=== PATIENT | female | born 1975 | race Hispanic/Latino ===

== ENCOUNTER → 2023-05-20 | Emergency (ER) | payer OTHER ==
[~2023-05-20] MED LIST: FAMOTIDINE 20 MG/2 ML VIAL IV ONE; HYDROCODONE/APAP 10/325 TAB ONE; MORPHINE 4 MG/ML SYR ONE; NA CHLORIDE 0.9% 1,000 ML ONE; ONDANSETRON 4 MG/2 ML VIAL ONE
--- OUTSIDE RECORDS SUMMARY | 2023-05-20 15:15 | XMS REPORT | Clinical Summary ---
Author Name Unknown Organization [facility] Address [address] [place] [address] Care Team Providers Care Chair Springer Name Role Phone Unavailable Primary Care Provider Unavailabl e Allergies No known active allergies Medications Medication Sig Dispensed Refills Start Date End Date Status amLODIPine (Norvasc) 5 mg tabletIndications:Hyp ertension Take 1 tablet (5 mg) by mouth daily. 30 tablet 0 01/23/2023 Active amoxicillin-clavulana te (Augmentin) 875 mg-125 mg per tabletIndications:Virginie lulitis and abscess of breast Take 1 tablet (875 mg) by mouth twice daily. 20 tablet 0 01/23/2023 Active Encounters Date Type Department Care Team Description 01/23/2023 1:37 PM CDT - 01/23/2023 5:22 PM CDT [facility] [address] [place] [address], 1st Floor near [place], [place] [id number] Buck Holt MD Cellulitis and abscess of breast (Primary Dx); Hypertension Discharge Disposition: Home after 05/20/2022 Surgical History Surgery Date Site/Laterality Comments SECTION, CLASSIC 05/31/1999 - 05/30/2000 x 2 LAPAROSCOPIC CHOLECYSTECOMY Medical History Medical History Date Comments Type 2 diabetes mellitus wit h diabetic retinopathy without macular edema Essential (primary) hypertension [place] palsy of left side of face COVID-19 viral pneumonia 2020 Family History Medical History Relation Name Comments Uterine cancer Maternal Aunt Relation Name Status Comments Maternal Aunt Social History Tobacco Use Types Packs/Day Years Used Date Smoking Tobacco: Never Smokeless Tobacco: Never Tobacco Cessation:Counseling Given: Not Answered Alcohol Use Standard Drinks/Week Comments Not Currently 0 (1 standard drink = 0.6 oz pur e alcohol) Sex and Gender Information Value Date Recorded Sex Assigned at Not on file Gender Identity Not on file Sexual Orientation Not on file Job Start Date Occupation Industry Not on file Not on file Not on file Obstetrics History Last Filed Vital Signs Vital Sign Reading Time Taken Comments Blood Pressure 156/85 01/23/2023 3:42 PM CDT Pulse 80 01/23/2023 3:42 PM CDT Temperature 37 C (98.6 F) 01/23/2023 3:42 PM CDT Respiratory Rate 16 01/23/2023 3:42 PM CDT Oxygen Saturation 94% 01/23/2023 3:42 PM CDT Inhaled Oxygen Concentration - - Weight 93.3 kg (205 lb 11 oz) 01/23/2023 1:32 PM CDT Height 154.9 cm (5' 1") 01/23/2023 1:32 PM CDT Body Mass Index 38.86 01/23/2023 1:32 PM CDT Plan of Treatment Not on file
[2023-05-20 16:07] LABS: Absolute Lymphocytes (CBC) 2.6 K/uL (0.7-4.9); Hematocrit 32.6 % (36.0-45.0); Lymphocytes % 35.7 % (15.3-44.8); MCV 88.8 fL (80-100); MPV 7.5 fL (7.6-11.3); Platelets 317 thou/uL (152-406); RBC Red Blood Cell Count 3.67 M/uL (3.86-4.86)
[2023-05-20 16:23] LABS: Albumin 3.3 g/dL (3.4-5.0); Bilirubin Total 0.2 mg/dL (0.2-1.0); Protein, Total 8.6 g/dL (6.4-8.2)
[2023-05-20 17:30] LABS: Specific Gravity 1.009 (1.005-1.030)
[2023-05-20 17:36] LABS: Specific Gravity 1.009 (1.005-1.030); Urine Bacteria None Seen /HPF (<20); Urine Bilirubin NEGATIVE (Negative); Urine Blood Trace (Negative); Urine Clarity Clear (Clear); Urine Color Colorless (Yellow); Urine Glucose NEGATIVE (Negative); Urine Mucus Slight /HPF (None Seen); Urine Protein NEGATIVE (Negative); Urine RBC <5 /HPF (None Seen); Urine Urobilinogen Normal (Normal)
--- NOTE | 2023-05-20 18:06 | RAD REPORT ---
EXAM DESCRIPTION: CT - Abdomen Pelvis W Contrast - 05/20/2023 5:09 pm CLINICAL HISTORY: ABD PAIN COMPARISON: No comparisons TECHNIQUE: Thin cut axial CT imaging of the abdomen and pelvis was performed following intravenous a dministration of 100 mL Isovue 300. Multiplanar reformats were generated and reviewed. All CT scans are performed using dose optimization technique as appropriate and may include automated exposure control or mA/KV adjustment according to patient size. FINDINGS: No suspicious findings in the lung bases. The liver, spleen, adrenal glands, and pancreas show no suspicious findings. Gallbladder was surgical ly removed. Symmetric renal function is seen with no hydronephrosis or suspicious renal mass. No radiopaque calcu li. Few pelvic phleboliths somewhat limit evaluation. No dilated bowel loops or bowel wall thickening. No free air, free fluid or inflammatory stranding. N o hernia, mass or bulky lymphadenopathy. The urinary bladder is without significant finding. No suspicious bony findings. IMPRESSION: No acute intra-abdominal process.
--- NOTE | 2023-05-20 18:19 | ER ---
Nurse's Notes [facility] Name: Maria Fernanda Olivares Age: 47 yrs Sex: Female : 1975 Arrival Date: 05/20/2023 Time: 15:11 Bed 7 Private MD: Laurie Mtz Diagnosis: Acute peptic ulcer, site unspecified, without hemorrhage or perforation Presentation: 05/20 15:18 Chief complaint: Patient states: she has been having upper abdominal pain for approx 2 ap3 weeks. patient states she has been dx with "bladder infection". Patient reports abdominal pain to be a 10/10 on the pain scale at this time. Coronavirus screen: At this time, the client does not indicate any symptoms associated with coronavirus-19. Ebola Screen: No symptoms or risks identified at this time. Initial Sepsis Screen: Does the patient meet any 2 criteria? No. Patient's initial sepsis screen is negative. Does the patient have a suspected source of infection? Yes: Acute abdominal pain. Risk Assessment: Do you want to hurt yourself or someone else? Patient reports no desire to harm self or others. Onset of symptoms was May 06, 2023. 15:18 Method Of Arrival: Wheelchair ap3 15:18 Acuity: ISREAL 3 ap3 Triage Assessment: 15:22 General: Appears uncomfortable, Behavior is calm, cooperative. Pain: Complains of pain ap3 in right upper quadrant Pain radiates to mid back area and right mid back Pain currently is 10 out of 10 on a pain scale. Neuro: Level of Consciousness is awake, alert, obeys commands, Oriented to person, place, time, situation, Appropriate for age. Cardiovascular: Patient's skin is warm and dry. Respiratory: Airway is patent Respiratory effort is even, unlabored, Respiratory pattern is regular, symmetrical. GI: Reports upper abdominal pain. 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 - Social history:: Smoking status: Patient denies any tobacco usage or history of. Screenin:23 Abuse screen: Denies threats or abuse. Nutritional screening: No deficits noted. ap3 Tuberculosis screening: No symptoms or risk factors identified. 16:03 [facility] ED Fall Risk Assessment (Adult) History of falling in the last 3 months, ph including since admission No falls in past 3 months (0 pts) Score/Fall Risk Level 0 - 2 = Low Risk Oriented to surroundings, Maintained a safe environment, Provided non-skid footwear, Hourly rounding (assess needs \\T\\ fall precautionary measures) done. Assessment: 16:02 General: Appears in no apparent distress. Behavior is calm, cooperative, appropriate ph for age, Reports chills for >3 days. Pain: Complains of pain in right upper quadrant Pain radiates to right mid back. Neuro: Level of Consciousness is awake, alert, obeys commands, Oriented to person, place, time, situation. Cardiovascular: Capillary refill < 3 seconds in bilateral fingers Patient's skin is warm and dry. Respiratory: Airway is patent Respiratory effort is even, unlabored, Respiratory pattern is regular, symmetrical. GI: Reports upper abdominal pain, nausea, Patient currently denies vomiting. Derm: Skin is pink, warm \\T\\ dry. Vital Signs: 15:18 BP 153 / 92; Pulse 80; Resp 18; Temp 98.1; Pulse Ox 100% ; Weight 96.16 kg; Pain 10/10; ap3 16:03 BP 143 / 76; Pulse 69; Resp 18; Pulse Ox 99% on R/A; ph 17:24 BP 159 / 75; Pulse 72; Resp 18; Pulse Ox 98% on R/A; ph 15:18 Pain Scale: Adult ap3 ED Course: 15:14 Patient arrived in ED. mr 15:14 Ernestina Franz PA-C is PHCP. sb4 15:14 Jose Luis Willis MD is Attending Physician. sb4 15:14 Laurie Mtz is Private Physician. mr 15:20 Triage completed. ap3 15:23 Arm band placed on right wrist. ap3 15:43 Tameka Nelson, MANAN is Primary Nurse. ph 16:02 CBC with Diff Sent. ph 16:02 CMP Sent. ph 16:02 Lipase Sent. ph 16:03 Patient has correct armband on for positive identification. Bed in low position. Call ph light in reach. Side rails up X 1. Pulse ox on. NIBP on. Door closed. Noise minimized. Warm blanket given. 17:11 CT Abd/Pelvis - IV Contrast Only In Process Unspecified. EDMS 18:17 Maldonado Lindo MD is Referral Physician. sb4 18:44 No provider procedures requiring assistance completed. IV discontinued, intact, ph bleeding controlled, No redness/swelling at site. Pressure dressing applied. Administered Medications: 16:01 Drug: NS 0.9% IV 1000 ml IV at 1 bolus Per protocol; 1000 mL bolus Route: IV; Rate: 1 ph bolus; Site: right antecubital; 17:25 Follow up: Response: No adverse reaction; IV Status: Completed infusion; IV Intake: ph 1000ml 16:01 Drug: Ondansetron IVP 4 mg IVP once; over 2 minutes Route: IVP; Site: right antecubital;ph 17:25 Follow up: Response: No adverse reaction ph 16:01 Drug: morphine IVP or IV 4 mg IVP once over 4 mins Route: IVP; Infused Over: 4 mins; ph Site: right antecubital; 17:25 Follow up: Response: No adverse reaction; RASS: Alert and Calm (0) ph 16:02 Drug: Famotidine IVP 20 mg IVP once; dilute with 10 mL 0.9% NaCl; give over 2 minutes ph Route: IVP; Site: right antecubital; 17:25 Follow up: Response: No adverse reaction ph 18:44 Drug: [place] PO 10 mg-325 mg 1 tabs PO once Route: PO; ph 18:44 Follow up: Response: No adverse reaction; Medication administered at discharge. ph 18:44 Not Given (Other Intervention Used): [id number] mg IVP once ph Medication: 15:23 VIS not applicable for this client. ap3 Intake: 17:25 IV: 1000ml; Total: 1000ml. ph Outcome: 18:18 Discharge ordered by . sb4 18:44 Discharged to home ambulatory, with significant other, ph 18:44 Condition: good 18:44 Discharge instructions given to patient, Instructed on discharge instructions, follow up and referral plans. medication usage, Demonstrated understanding of instructions, follow-up care, medications, Prescriptions given X 2, 18:45 Patient left the ED. ph Signatures: Dispatcher [employer] EDNM Akila Bustos, Tameka Santizo RN RN ph Sammie Sandoval RN RN ap3 Ernestina Franz, PA-C PA-C sb4
--- NOTE | 2023-05-20 18:19 | EDPHYS ---
Physician Documentation [facility] Name: Maria Fernanda Olivares Age: 47 yrs Sex: Female : 1975 Arrival Date: 05/20/2023 Time: 15:11 Bed 7 Private MD: Laurie Mtz ED Physician Jose Luis Willis HPI: 05/20 16:11 This 47 yrs old Female presents to ER via Wheelchair with complaints of sb4 Abdominal Pain. 16:11 The patient presents with abdominal pain in the epigastric area, in the right upper sb4 quadrant. Onset: The symptoms/episode began/occurred 1 week(s) ago. The symptoms radiate to right back. Associated signs and symptoms: Pertinent positives: nausea, Pertinent negatives: chest pain, constipation, diarrhea, fever. Severity of pain: in the emergency department the pain is a 10 / 10. The patient has been recently seen by a physician: in [facility] ED 5 days ago, with similar presenting complaints, and apparently given a diagnosis of constipation \T\ UTI, lab tests were done, CT scan was done, was given a prescription for antibiotics, and was referred to a specialist, but the patient's symptoms have persisted. 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 - Social history:: Smoking status: Patient denies any tobacco usage or history of. ROS: 16:27 Constitutional: Negative for fever, chills, and weight loss, sb4 16:27 Abdomen/GI: Positive for abdominal pain, 16:27 All other systems are negative, Exam: 16:28 Head/Face: Normocephalic, atraumatic. Eyes: Extra-ocular motions intact. Periorbital sb4 areas with no swelling, redness, or edema. ENT: Mucous membranes moist. Cardiovascular: Regular rate and rhythm with a normal S1 and S2. Respiratory: Lungs have equal breath sounds bilaterally, clear to auscultation and percussion. No rales, rhonchi or wheezes noted. No increased work of breathing, no retractions or nasal flaring. Abdomen/GI: Soft, non-tender, no distension. Skin: Warm, dry with normal turgor. Normal color with no rashes, no lesions, and no evidence of cellulitis. MS/ Extremity: Pulses equal, no cyanosis. Neurovascular intact. Full, normal range of motion. 16:28 Constitutional: The patient appears alert, awake, obese, in obvious pain, Vital Signs: 15:18 BP 153 / 92; Pulse 80; Resp 18; Temp 98.1; Pulse Ox 100% ; Weight 96.16 kg; Pain 10/10; ap3 16:03 BP 143 / 76; Pulse 69; Resp 18; Pulse Ox 99% on R/A; ph 17:24 BP 159 / 75; Pulse 72; Resp 18; Pulse Ox 98% on R/A; ph 15:18 Pain Scale: Adult ap3 MDM: 15:16 Patient medically screened. sb4 16:28 Differential diagnosis: bowel obstruction, gastritis, non-specific abd pain, sb4 pancreatitis, Peptic Ulcer Disease, Peritonitis, Ureterolithiasis, urinary tract infection. 18:17 Data reviewed: vital signs, nurses notes, lab test result(s), radiologic studies, and sb4 as a result, I will discharge patient. Historians other than the Patient: Spouse/Significant Other: . Care significantly affected by the following chronic conditions: Diabetes, Hypertension. 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 05/20 15:24 Order name: CBC with Diff; Complete Time: 16:10 sb4 05/20 15:24 Order name: CMP; Complete Time: 16:24 sb4 05/20 15:24 Order name: Lipase; Complete Time: 16:24 sb4 05/20 15:24 Order name: Test, Urine; Complete Time: 17:49 sb4 05/20 15:24 Order name: Urinalysis w/ reflexes; Complete Time: 17:49 sb4 05/20 15:24 Order name: CT Abd/Pelvis - IV Contrast Only; Complete Time: 18:08 sb4 05/20 15:24 Order name: IV Saline Lock; Complete Time: 16:02 sb4 05/20 15:24 Order name: Labs collected and sent; Complete Time: 16:02 sb4 Administered Medications: 16:01 Drug: NS 0.9% IV 1000 ml IV at 1 bolus Per protocol; 1000 mL bolus Route: IV; Rate: 1 ph bolus; Site: right antecubital; 17:25 Follow up: Response: No adverse reaction; IV Status: Completed infusion; IV Intake: ph 1000ml 16:01 Drug: Ondansetron IVP 4 mg IVP once; over 2 minutes Route: IVP; Site: right antecubital;ph 17:25 Follow up: Response: No adverse reaction ph 16:01 Drug: morphine IVP or IV 4 mg IVP once over 4 mins Route: IVP; Infused Over: 4 mins; ph Site: right antecubital; 17:25 Follow up: Response: No adverse reaction; RASS: Alert and Calm (0) ph 16:02 Drug: Famotidine IVP 20 mg IVP once; dilute with 10 mL 0.9% NaCl; give over 2 minutes ph Route: IVP; Site: right antecubital; 17:25 Follow up: Response: No adverse reaction ph 18:44 Drug: [place] PO 10 mg-325 mg 1 tabs PO once Route: PO; ph 18:44 Follow up: Response: No adverse reaction; Medication administered at discharge. ph 18:44 Not Given (Other Intervention Used): [id number] mg IVP once ph Disposition: 19:11 Co-signature as Attending Physician, Jose Luis Willis MD I reviewed the patient's care rt provided by the Advanced Practice Provider and agree with the diagnosis and treatment plan. Disposition Summary: 05/20/23 18:18 Discharge Ordered Notes: Location: Home sb4 Problem: an ongoing problem sb4 Symptoms: are unchanged sb4 Condition: Stable sb4 Diagnosis - Acute peptic ulcer, site unspecified, without hemorrhage or perforation sb4 Followup: sb4 - With: Maldonado Lindo MD - When: 1 week - Reason: Further diagnostic work-up, Recheck today's complaints, Re-evaluation by your physician Discharge Instructions: - Discharge Summary Sheet sb4 - Peptic Ulcer, [id number] sb4 - Peptic Ulcer Eating Plan sb4 Forms: - Medication Reconciliation Form sb4 - Thank You Letter sb4 - Antibiotic Education sb4 - Prescription Opioid Use sb4 - Patient Portal Instructions sb4 - Leadership Thank You Letter sb4 Prescriptions: - pantoprazole 40 mg Oral tablet, delayed release (enteric coated) - take 1 tablet ORAL route every day at bedtime for 4 wks; 30 tablet; Refills: 0, sb4 Product Selection Permitted - Tramadol 50 mg Oral Tablet - take 1 tablet ORAL route every 8 hours as needed; 12 tablet; Refills: 0, sb4 Product Selection Permitted Signatures: Dispatcher [employer] EDTameka Calvert RN RN ph Sammie Sandoval RN RN ap3 Ernestina Franz PA-C PA-C sb4 Jose Luis Willis MD MD rt Corrections: (The following items were deleted from the chart) 16:29 16:27 Constitutional: This is a well developed, well nourished patient who is awake, sb4 alert, and in no acute distress. Head/Face: Normocephalic, atraumatic. sb4
[2023-05-20 21:32] VITALS: TEMP 98.1
[2023-05-20 21:43] VITALS: BP 159/75; O2SAT 98
== END ==
LOC: ER 15:11
DX: K27.3 Acute peptic ulcer, site unspecified, without hemorrhage or perforation (principal); E11.9 Type 2 diabetes mellitus without complications; I10 Essential (primary) hypertension
CPT/HCPCS: 96361; 85025; 81001; 36415; 81025; 83690; 80053; 74177; 96375; 96374; 99284; Q9967; J2405; J7030

== ENCOUNTER → 2023-07-16 | Emergency (ER) | payer BC, OTHER ==
[~2023-07-16] MED LIST changes: -FAMOTIDINE 20 MG/2 ML VIAL IV ONE; -HYDROCODONE/APAP 10/325 TAB ONE; +HYDROCODONE/CHLORPHEN 5 ML/OSYR ONE; -MORPHINE 4 MG/ML SYR ONE; -NA CHLORIDE 0.9% 1,000 ML ONE; -ONDANSETRON 4 MG/2 ML VIAL ONE
--- OUTSIDE RECORDS SUMMARY | 2023-07-16 14:18 | XMS REPORT | Clinical Summary ---
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 Role Phone Unavailable Primary Care Provider [...] PM CDT [facility] [address] [place] [address], 1st Floor near [place], [place] [id number] Buck Holt MD Cellulitis and abscess of breast (Primary Dx); Hypertension Discharge Disposition: Home after 07/16/2022 Surgical History Surgery Date Site/Laterality Comments SECTION, CLASSIC 05/31/1999 - 05/30/2000 x 2 LAPAROSCOPIC CHOLECYSTECOMY Medical History Medical History Date Comments Type 2 diabetes mellitus wit h diabetic retinopathy without macular edema Essential (primary) hypertension [place] palsy of left side of face COVID-19 [...]
--- NOTE | 2023-07-16 15:10 | RAD REPORT ---
EXAM DESCRIPTION: RAD - Chest Pa And Lat (2 Views) - 07/16/2023 2:51 pm CLINICAL HISTORY: Chest pain;Cough COMPARISON: <Comparisons> TECHNIQUE: PA and lateral views of the chest were obtained. FINDINGS: The lungs are clear. Heart size is normal and central vasculature is within normal limits. No pleural effusion or pneumothorax seen. No acute bony finding noted. IMPRESSION: No acute cardiopulmonary process.
[2023-07-16 15:48] LABS: SARS-CoV-2 Antigen Rapid Res Negative (Negative)
--- NOTE | 2023-07-16 15:51 | ER ---
Nurse's Notes [facility] Name: Maria Fernanda Olivares Age: 47 yrs Sex: Female : 1975 Arrival Date: 07/16/2023 Time: 14:15 Bed IW1 Private MD: Diagnosis: Acute bronchitis, unspecified Presentation: 07/16 14:29 Chief complaint: Patient states: cough and SOB and the left side of my face was numb iw and had head pressure , has hx of bells palsy, symptoms started 3 days ago , no fever , coughing up clear phlegm. Coronavirus screen: Client presents with at least one sign or symptom that may indicate coronavirus-19. Ebola Screen: Patient negative for fever greater than or equal to 101.5 degrees Fahrenheit, and additional compatible Ebola Virus Disease symptoms Patient denies exposure to infectious person. Patient denies travel to an Ebola-affected area in the 21 days before illness onset. No symptoms or risks identified at this time. 14:29 Method Of Arrival: Ambulatory iw 14:30 Initial Sepsis Screen: Does the patient meet any 2 criteria? No. Patient's initial iw sepsis screen is negative. Does the patient have a suspected source of infection? No. Patient's initial sepsis screen is negative. Risk Assessment: Do you want to hurt yourself or someone else? Patient reports no desire to harm self or others. Onset of symptoms was July 13, 2023. 14:30 Acuity: ISREAL 3 iw Triage Assessment: 17:10 General: Appears in no apparent distress. Behavior is calm, cooperative. Respiratory: iw Reports shortness of breath cough that is. Historical: - Allergies: 14:31 No Known Allergies; iw - PMHx: 14:31 Asthma; diabetes mellitus; Gastroesophageal reflux disease; Hypercholesterolemia; iw Hypertensive disorder; - PSHx: 14:31 section; hysterectomy; iw 14:31 Cholecystectomy; iw Screenin:10 [facility] ED Fall Risk Assessment (Adult) Score/Fall Risk Level. Abuse screen: Denies iw threats or abuse. Denies injuries from another. Nutritional screening: No deficits noted. Tuberculosis screening: No symptoms or risk factors identified. Assessment: 17:10 Reassessment: Patient appears in no apparent distress at this time. Patient and/or iw family updated on plan of care and expected duration. Pain level reassessed. Patient is alert, oriented x 3, equal unlabored respirations, skin warm/dry/pink. 17:10 Pain: Complains of pain in head. Cardiovascular: Patient's skin is warm and dry. Rhythm iw is regular. Respiratory: Airway is patent Respiratory effort is even, unlabored, Breath sounds are clear bilaterally. Vital Signs: 14:29 BP 152 / 76; Pulse 90; Resp 16; Temp 98.8; Pulse Ox 97% on R/A; iw ED Course: 14:17 Patient arrived in ED. im 14:18 Ernestina Franz PA-C is PHCP. sb4 14:18 Ed Song MD is Attending Physician. sb4 14:31 Triage completed. iw 14:32 Arm band placed on. iw 14:52 Chest Pa And Lat (2 Views) XRAY In Process Unspecified. EDMS 17:10 Jovita Romano, RN is Primary Nurse. iw 17:10 Patient has correct armband on for positive identification. Provided Education on: . iw 17:10 No provider procedures requiring assistance completed. Patient did not have IV access iw during this emergency room visit. Administered Medications: 14:45 Drug: Tussionex Pennkinetic ER PO Suspension 5 ml PO once Route: PO; iw 15:00 Follow up: Response: No adverse reaction iw Medication: 17:10 VIS not applicable for this client. iw Outcome: 15:50 Discharge ordered by . sb4 17:10 Discharged to home ambulatory, iw 17:10 Condition: good 17:10 Discharge instructions given to patient, Instructed on discharge instructions, follow up and referral plans. medication usage, Demonstrated understanding of instructions, follow-up care, medications, Prescriptions given X 2, 17:10 Patient left the ED. iw Signatures: Dispatcher [employer] Jovita Holland, RN RN Ernestina Turcios PA-C PA-C sb4 Amalia Tan im
--- NOTE | 2023-07-16 15:51 | EDPHYS ---
Physician Documentation [facility] Name: Maria Fernanda Olivares Age: 47 yrs Sex: Female : 1975 Arrival Date: 07/16/2023 Time: 14:15 Bed IW1 Private MD: ED Physician Ed Song HPI: 07/16 14:38 This 47 yrs old Female presents to ER via Ambulatory with complaints of Flu sb4 Symptoms. 14:39 cough and congestion for 3 days. denies sick contacts. no fevers, no GI symptoms. has sb4 been taking cough drops and using inhaler without significant relief. Historical: - Allergies: 14:31 No Known Allergies; iw - PMHx: 14:31 Asthma; diabetes mellitus; Gastroesophageal reflux disease; Hypercholesterolemia; iw Hypertensive disorder; - PSHx: 14:31 section; hysterectomy; iw 14:31 Cholecystectomy; iw ROS: 14:39 Constitutional: Negative for fever, chills, and weight loss, sb4 14:39 ENT: Positive for sinus congestion, 14:39 Respiratory: Positive for cough, with clear sputum, 14:39 All other systems are negative, Exam: 14:39 Head/Face: Normocephalic, atraumatic. Eyes: Extra-ocular motions intact. Periorbital sb4 areas with no swelling, redness, or edema. ENT: Mucous membranes moist. Cardiovascular: Regular rate and rhythm with a normal S1 and S2. Respiratory: Lungs have equal breath sounds bilaterally, clear to auscultation and percussion. No rales, rhonchi or wheezes noted. No increased work of breathing, no retractions or nasal flaring. Abdomen/GI: Soft, non-tender, no distension. Skin: Warm, dry with normal turgor. Normal color with no rashes, no lesions, and no evidence of cellulitis. MS/ Extremity: Pulses equal, no cyanosis. Neurovascular intact. Full, normal range of motion. 14:39 Constitutional: The patient appears in no acute distress, alert, awake, obese, 14:39 Respiratory: deep breath elicits cough, Vital Signs: 14:29 BP 152 / 76; Pulse 90; Resp 16; Temp 98.8; Pulse Ox 97% on R/A; iw MDM: 14:37 Patient medically screened. sb4 14:39 Differential diagnosis: asthma, Bronchitis pneumonia, URI. sb4 15:49 Antibiotic administration: Not indicated, the patient has a suspected viral illness. sb4 Data reviewed: vital signs, nurses notes, lab test result(s), radiologic studies, and as a result, I will discharge patient. Counseling: I had a detailed discussion with the patient and/or guardian regarding the historical points, exam findings, and any diagnostic results supporting the discharge/admit diagnosis, lab results, radiology results, to return to the emergency department if symptoms worsen or persist or if there are any questions or concerns that arise at home. 07/16 14:38 Order name: SARS RAPID; Complete Time: 15:49 sb4 07/16 14:38 Order name: Flu; Complete Time: 15:23 sb4 07/16 14:38 Order name: Chest Pa And Lat (2 Views) XRAY; Complete Time: 15:12 sb4 Administered Medications: 14:45 Drug: Tussionex Pennkinetic ER PO Suspension 5 ml PO once Route: PO; iw 15:00 Follow up: Response: No adverse reaction iw Disposition: 18:54 Co-signature as Attending Physician, Ed Song MD I reviewed the patient's care rn provided by the Advanced Practice Provider and agree with the diagnosis and treatment plan. Disposition Summary: 07/16/23 15:50 Discharge Ordered Notes: Location: Home sb4 Problem: new sb4 Symptoms: have improved sb4 Condition: Stable sb4 Diagnosis - Acute bronchitis, unspecified sb4 Followup: sb4 - With: Emergency Department - When: As needed - Reason: Trouble breathing, Worsening of condition Discharge Instructions: - Discharge Summary Sheet sb4 - Acute Bronchitis, Adult sb4 Forms: - Work release form sb4 - Thank You Letter sb4 - Antibiotic Education sb4 - Patient Portal Instructions sb4 - Leadership Thank You Letter sb4 Prescriptions: - Tessalon Perles 100 mg Oral Capsule - take 1 capsule ORAL route every 8 hours As needed; 15 capsule; Refills: 0, sb4 Product Selection Permitted - Prednisone 20 mg Oral Tablet - take 1 tablet ORAL route every 12 hours for 5 days; 10 tablet; Refills: 0, sb4 Product Selection Permitted Signatures: Dispatcher [employer] Jovita Holland RN RN iw Nieto, Roman, MD MD rn Brown, Sophia, PA-C PAManjinder sb4
[2023-07-16 17:27] VITALS: BP 152/76; TEMP 98.8; O2SAT 97
== END ==
LOC: ER 14:15
DX: J20.9 Acute bronchitis, unspecified (principal); Z11.52 Encounter for screening for COVID-19
CPT/HCPCS: 36415; 71046; 87804; 87811; 99283

== ENCOUNTER 2023-09-28 16:53 | Emergency (ER) | payer BC ==
--- OUTSIDE RECORDS SUMMARY | 2023-09-28 16:55 | XMS REPORT | Clinical Summary ---
Author Name Unknown Organization [facility] Address [address] [place] [id number] Care Team Providers Care Control System Manager Name Role Phone Unavailable Primary Care Provider [...] PM CDT [facility] [address] [place] [address], 1st Floor near [facility] [place], [place] [id number] Buck Holt MD Cellulitis and abscess of breast (Primary Dx); Hypertension Discharge Disposition: Home after 09/28/2022 Surgical History Surgery Date Site/Laterality Comments SECTION, CLASSIC 05/31/1999 - 05/30/2000 x 2 LAPAROSCOPIC CHOLECYSTECOMY Medical History Medical History Date Comments Type 2 diabetes mellitus wit h diabetic retinopathy without macular edema Essential (primary) hypertension [place] palsy of left side of face COVID-19 [...]
--- NOTE | 2023-09-28 18:19 | RAD REPORT ---
EXAM DESCRIPTION: RAD - Chest Single View - 09/28/2023 6:13 pm CLINICAL HISTORY: right side lower chest pain Chest pain. COMPARISON: Chest Pa And Lat (2 Views) dated 07/16/2023 FINDINGS: Portable technique limits examination quality. Interstitial lung markings are diffusely prominent which can be seen viral infection, reactive airway disease or chronic bronchitis. The heart is upper limit normal in size. No displaced fractures.
[2023-09-28] MEDS ORDERED: KETOROLAC 30 MG/ML INJ ONE (19:06)
[2023-09-28] MEDS ORDERED: NA CHLORIDE 0.9% 1,000 ML ONE (19:06)
[2023-09-28 19:07] LABS: Sqamous Epithelial <5 /HPF (None Seen); Urine Bacteria None Seen /HPF (<20); Urine Bilirubin NEGATIVE (Negative); Urine Blood 2+ (Negative); Urine Clarity Clear (Clear); Urine Color Light-Yellow (Yellow); Urine Culture Reflex Order NOT NEEDED; Urine Glucose 4+ (Over) (Negative); Urine Ketones NEGATIVE (Negative); Urine Micro Reflex YN NO BILL MICROSCOPIC; Urine Mucus Slight /HPF (None Seen); Urine Nitrite NEGATIVE (Negative); Urine Protein 3+ (Negative); Urine Urobilinogen Normal (Normal); Urine WBC <5 /HPF (<5); Urine pH 5.5 (5.0-7.0)
[2023-09-28 19:11] LABS: Absolute Eosinophils 0.2 K/uL (0-0.5); Absolute Lymphocytes (CBC) 2.1 K/uL (0.7-4.9); Absolute Monocytes 0.5 K/uL (0.1-1.3); Absolute Neutrophil 3.4 K/uL (1.8-8.0); Basophils % 0.8 % (0-1.3); Eosinophils % 2.5 % (0-4.4); Hematocrit 34.4 % (36.0-45.0); Hemoglobin 11.7 g/dL (12.0-15.0); Lymphocytes % 34.2 % (15.3-44.8); MCH 29.3 pg (27.0-35.0); MCHC 33.9 g/dL (32.0-36.0); MCV 86.6 fL (80-100); MPV 7.7 fL (7.6-11.3); Monocytes % 8.2 % (3.3-12.3); Neutrophils % 54.3 % (41.7-73.7); Platelets 257 thou/uL (152-406); RBC Red Blood Cell Count 3.97 M/uL (3.86-4.86); Red Cell Distribution Width 14.6 % (12.1-15.2)
[2023-09-28 19:37] LABS: Albumin/Globulin Ratio 0.6 (1.1-1.8); Anion Gap 9.5 mEq/L (5.0-15.0); Bilirubin Total 0.3 mg/dL (0.2-1.0); Globulin 4.9 g/dL (2.3-3.5); Potassium 3.5 mEq/L (3.5-5.1); Protein, Total 7.9 g/dL (6.4-8.2)
--- NOTE | 2023-09-28 20:30 | RAD REPORT ---
EXAM DESCRIPTION: CT - Stone Protocol - 09/28/2023 8:14 pm CLINICAL HISTORY: Flank pain. right flank pain COMPARISON: Abdomen Pelvis W Contrast dated 05/20/2023 TECHNIQUE: Axial images were obtained without oral or IV contrast. Lack of contrast limits solid org an and vascular assessment. The [id number]-spra spans the entirety of the system partially obscuring uppermost abdomen and lung bases. Coronal reformatted images were obtained and reviewed. All CT scans are performed using dose optimization technique as appropriate and may include automated exposure control or mA/KV adjustment according to patient size. FINDINGS: The lower lung rivera are clear. Imaged portions of the liver and spleen show no suspicious findings on non-contrast imaging.Cholecyst ectomy. The pancreas and adrenal glands are normal. No pathologic lymphadenopathy in the abdomen or p elio. No urinary tract stones or obstructive uropathy. No bowel obstruction, free air, free fluid or abscess. Normal appendix noted. No significant bony abnormality. IMPRESSION: No urinary tract stones or obstructive uropathy.
[2023-09-28] MEDS ORDERED: FENTANYL CITR 100 MCG/2 ML ONE (20:42)
[2023-09-28] MEDS ORDERED: METHOCARBAMOL 1,000 MG/10 ML VIAL ONE (20:43)
[2023-09-28] MEDS ORDERED: NA CHLORIDE 0.9% 100 ML ONE (20:43)
--- NOTE | 2023-09-28 22:07 | EDPHYS ---
Physician Documentation [facility] Name: Maria Fernanda Olivares Age: 47 yrs Sex: Female : 1975 Arrival Date: 09/28/2023 Time: 16:53 Bed 12 Private MD: ED Physician Be Velásquez HPI: 09/27 18:00 This 47 yrs old Female presents to ER via Ambulatory with complaints of Back cp Pain. 18:00 The patient presents with pain that is acute, with no known mechanism of injury. The cp symptoms are located in the right mid back. 18:00 Onset: The symptoms/episode began/occurred 2 day(s) ago. cp 18:00 The pain radiates to the right flank. Associated signs and symptoms: Pertinent cp negatives: abdominal pain, constipation, dysuria, fever, hematuria, incontinence, numbness, tingling, weakness. The problem was sustained from unknown cause. Severity of symptoms: in the emergency department the symptoms are unchanged, despite home interventions. 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 - Infectious Disease History:: Denies. - Social history:: Smoking status: Patient denies any tobacco usage or history of. ROS: 18:05 Constitutional: Negative for body aches, chills, fever, poor PO intake, cp 18:05 Eyes: Negative for injury, pain, redness, and discharge, cp 18:05 ENT: Negative for drainage from ear(s), ear pain, sore throat, difficulty swallowing, difficulty handling secretions, 18:05 Cardiovascular: Negative for chest pain, edema, palpitations, 18:05 Respiratory: Negative for cough, shortness of breath, wheezing, 18:05 Abdomen/GI: Negative for abdominal pain, vomiting, diarrhea, constipation, 18:05 Back: Positive for pain at rest, pain with movement, flank pain, on the right, of the right mid back, 18:05 : Negative for urinary symptoms, hematuria, burning with urination, 18:05 Skin: Negative for cellulitis, rash, 18:05 Neuro: Negative for altered mental status, dizziness, headache, numbness, weakness, 18:05 All other systems are negative, Exam: 18:10 Constitutional: The patient appears in no acute distress, alert, awake, cp non-diaphoretic, non-toxic, well developed, well nourished, obese, uncomfortable, 18:10 Head/Face: Normocephalic, atraumatic. cp 18:10 Eyes: Periorbital structures: appear normal, Conjunctiva: normal, no exudate, no injection, Sclera: no appreciated abnormality, Lids and lashes: appear normal, bilaterally, 18:10 ENT: External ear(s): are unremarkable, Nose: is normal, Mouth: Lips: moist, Oral mucosa: pink and intact, moist, Posterior pharynx: Airway: no evidence of obstruction, patent, 18:10 Neck: ROM/movement: is normal, is supple, without pain, no range of motions limitations, no nuchal rigidity, 18:10 Chest/axilla: Inspection: normal, 18:10 Cardiovascular: Rate: normal, Rhythm: regular, Edema: is not appreciated, JVD: is not appreciated, 18:10 Respiratory: the patient does not display signs of respiratory distress, Respirations: normal, no use of accessory muscles, no retractions, labored breathing, is not present, Breath sounds: are clear throughout, no decreased breath sounds, no stridor, no wheezing, 18:10 Abdomen/GI: Inspection: obese Bowel sounds: active, all quadrants, Palpation: abdomen is soft and non-tender, in all quadrants, 18:10 Back: pain, that is moderate, of the right subscapular area and right mid back, ROM is normal, vertebral tenderness, is not appreciated, 18:10 Skin: cellulitis, is not appreciated, no rash present. 18:10 Neuro: Orientation: to person, place \T\ time. Mentation: is normal, Motor: moves all fours, strength is normal, Sensation: is normal, Gait: is steady, Vital Signs: 17:04 BP 156 / 96; Pulse 85; Resp 18 S; Temp 98.4(TE); Pulse Ox 95% on R/A; Weight 97.52 kg as6 (R); Height 5 ft. 2 in. (R); Pain 8/10; 19:30 BP 158 / 87; Pulse 81; Resp 18; Pulse Ox 95% ; cp4 20:30 BP 151 / 83; Pulse 87; Resp 18; Pulse Ox 96% ; cp4 21:30 BP 132 / 77; Pulse 84; Resp 18; Pulse Ox 96% ; cp4 22:22 BP 156 / 85; Pulse 88; Resp 18; Temp 98.1; Pulse Ox 97% ; vc1 17:04 Body Mass Index 39.32 (97.52 kg, 157.48 cm) as6 17:04 Pain Scale: Adult as6 MDM: 17:31 Patient medically screened. 18:00 Differential diagnosis: Basilar Pneumonia Hydronephrosis Pyelonephritis ruptured disc, cp sprain, Ureterolithiasis choledocholithiasis. 22:05 Data reviewed: vital signs, nurses notes, lab test result(s), radiologic studies, CT cp scan, plain films. 22:05 I considered the following discharge prescriptions or medication management in the emergency department Medications were administered in the Emergency Department. See MAR. Care significantly affected by the following chronic conditions: Diabetes, Hypertension, Obesity. Counseling: I had a detailed discussion with the patient and/or guardian regarding the historical points, exam findings, and any diagnostic results supporting the discharge/admit diagnosis, lab results, radiology results, the need for outpatient follow up, a family practitioner, to return to the emergency department if symptoms worsen or persist or if there are any questions or concerns that arise at home. Response to treatment: the patient's symptoms have mildly improved after treatment, and as a result, I will discharge patient. 09/27 17:41 Order name: Urine W/Microscopic (UAM); Complete Time: 19:53 09/27 17:41 Order name: Test, Urine; Complete Time: 19:53 cp 09/27 18:00 Order name: CBC with Diff; Complete Time: 19:53 09/27 18:00 Order name: CMP; Complete Time: 19:53 cp 09/27 18:00 Order name: Lipase; Complete Time: 19:53 cp 09/27 18:00 Order name: XRAY Chest (1 view); Complete Time: 19:53 09/27 20:35 Interpretation: Report review. 09/27 19:54 Order name: CT Stone Protocol; Complete Time: 20:35 09/27 18:00 Order name: IV Saline Lock; Complete Time: 19:03 cp 09/27 18:00 Order name: Labs collected and sent; Complete Time: 19:03 cp Administered Medications: 19:19 Drug: NS 0.9% IV 1000 ml IV at 1 bolus Per protocol; 1000 mL bolus Route: IV; Rate: 1 cp4 bolus; Site: right antecubital; 20:55 Follow up: Response: No adverse reaction cp4 22:23 Follow up: IV Status: Completed infusion; IV Intake: 1000ml vc1 19:19 Drug: TORadol - Ketorolac IVP 15 mg IVP once Route: IVP; Site: right antecubital; cp4 22:00 Follow up: Response: No adverse reaction; Marked relief of symptoms; Pain is decreased vc1 20:54 Drug: fentaNYL (PF) IVP 25 mcg IVP once Route: IVP; Site: right antecubital; cp4 22:23 Follow up: Response: No adverse reaction; Marked relief of symptoms vc1 20:55 Drug: Methocarbamol IVPB 1 grams IVPB once over 1 hrs; (mix in NS 100 mL) Route: IVPB; cp4 Infused Over: 1 hrs; Site: right antecubital; 22:00 Follow up: IV Status: Completed infusion; IV Intake: 100ml vc1 Disposition Summary: 09/28/23 22:06 Discharge Ordered Notes: Location: Home cp Problem: new cp Symptoms: have improved cp Condition: Stable cp Diagnosis - Dorsalgia, unspecified cp Followup: cp - With: Private Physician - When: 2 - 3 days - Reason: Recheck today's complaints Discharge Instructions: - Discharge Summary Sheet cp - Acute Back Pain, Adult cp - Musculoskeletal Pain cp - Back Exercises cp Forms: - Medication Reconciliation Form cp - Antibiotic Education cp - Prescription Opioid Use cp - Patient Portal Instructions cp - Leadership Thank You Letter cp Prescriptions: - Diclofenac Sodium 75 mg Oral tablet, delayed release (enteric coated) - take 1 tablet ORAL route 2 times per day; 20 tablet; Refills: 0, Product cp Selection Permitted - methocarbamol 750 mg Oral tablet - take 1 tablet ORAL route 3 times per day; 20 tablet; Refills: 0, Product cp Selection Permitted Signatures: Dispatcher [employer] EDMS Be Keith PA PA cp Slawson, Ashby, RN RN [id number] Joselin Argueta cp4 Jo Ann Briones RN vc1 Corrections: (The following items were deleted from the chart) 18:01 18:01 CBC+H.LAB.BRZ ordered. EDMS EDMS 18:01 18:01 COMPREHENSIVE METABOLIC PANEL+C.LAB.BRZ ordered. EDMS EDMS 18:01 18:01 LIPASE+C.LAB.BRZ ordered. EDMS EDMS 18:01 18:01 Chest Single View+RAD.RAD.BRZ ordered. EDMS EDMS
--- NOTE | 2023-09-28 22:07 | ER ---
Nurse's Notes [facility] Name: Maria Fernanda Olivares Age: 47 yrs Sex: Female : 1975 Arrival Date: 09/28/2023 Time: 16:53 Bed 12 Private MD: Diagnosis: Dorsalgia, unspecified Presentation: 09/27 17:04 Chief complaint: Patient states: right sided flank/mid back pain. Coronavirus screen: as6 At this time, the client does not indicate any symptoms associated with coronavirus-19. Ebola Screen: No symptoms or risks identified at this time. Initial Sepsis Screen: Does the patient meet any 2 criteria? No. Patient's initial sepsis screen is negative. Does the patient have a suspected source of infection? No. Patient's initial sepsis screen is negative. Risk Assessment: Do you want to hurt yourself or someone else? Patient reports no desire to harm self or others. Onset of symptoms was September 26, 2023. 17:04 Acuity: ISREAL 3 as6 17:04 Method Of Arrival: Ambulatory as6 Triage Assessment: 17:05 General: Appears uncomfortable, Behavior is calm, cooperative. Pain: Complains of pain as6 in back. 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 - Infectious Disease History:: Denies. - Social history:: Smoking status: Patient denies any tobacco usage or history of. Screenin:19 [facility] ED Fall Risk Assessment (Adult) History of falling in the last 3 months, cp4 including since admission No falls in past 3 months (0 pts) Confusion or Disorientation No (0 pts) Intoxicated or Sedated No (0 pts) Impaired Gait No (0 pts) Mobility Assist Device Used No (0 pt) Altered Elimination No (0 pt) Score/Fall Risk Level 0 - 2 = Low Risk Oriented to surroundings, Maintained a safe environment, Assessed \T\ reinforced patient's understanding of fall precautions, Hourly rounding (assess needs \T\ fall precautionary measures) done. Abuse screen: Denies threats or abuse. Nutritional screening: No deficits noted. Tuberculosis screening: No symptoms or risk factors identified. Assessment: 19:19 General: Appears uncomfortable, Behavior is calm, cooperative, appropriate for age. cp4 Pain:. Neuro: Level of Consciousness is awake, alert, obeys commands, Oriented to person, place, time, situation, Crew Attendant are equal bilaterally Moves all extremities. Gait is steady, Speech is normal, Facial symmetry appears normal, Pupils are PERRLA, Intact. 22:22 Reassessment: No changes from previously documented assessment. Patient and/or family vc1 updated on plan of care and expected duration. Pain level reassessed. Patient is alert, oriented x 3, equal unlabored respirations, skin warm/dry/pink. Patient states feeling better. Patient states symptoms have improved. Vital Signs: 17:04 BP 156 / 96; Pulse 85; Resp 18 S; Temp 98.4(TE); Pulse Ox 95% on R/A; Weight 97.52 kg as6 (R); Height 5 ft. 2 in. (R); Pain 8/10; 19:30 BP 158 / 87; Pulse 81; Resp 18; Pulse Ox 95% ; cp4 20:30 BP 151 / 83; Pulse 87; Resp 18; Pulse Ox 96% ; cp4 21:30 BP 132 / 77; Pulse 84; Resp 18; Pulse Ox 96% ; cp4 22:22 BP 156 / 85; Pulse 88; Resp 18; Temp 98.1; Pulse Ox 97% ; vc1 17:04 Body Mass Index 39.32 (97.52 kg, 157.48 cm) as6 17:04 Pain Scale: Adult as6 ED Course: 16:59 Patient arrived in ED. mg5 17:04 Arm band placed on right wrist. as6 17:05 Triage completed. as6 17:31 Be Keith PA is PHCP. cp 17:31 Be Velásquez MD is Attending Physician. cp 18:14 Joselin Argueta is Primary Nurse. cp4 18:15 XRAY Chest (1 view) In Process Unspecified. EDMS 18:54 Test, Urine Sent. cp4 18:54 Urine W/Microscopic (UAM) Sent. cp4 19:19 Bed in low position. Call light in reach. Side rails up X 1. cp4 19:19 No provider procedures requiring assistance completed. Initial lab(s) drawn, by me, kalen sent to lab. Urine collected: clean catch specimen, clear. Inserted saline lock: 20 gauge in right antecubital area, using aseptic technique. 20:15 CT Stone Protocol In Process Unspecified. EDMS 22:21 Provided Education on: muscle relaxer; fall safety. vc1 22:21 IV discontinued, intact, bleeding controlled, No redness/swelling at site. Pressure vc1 dressing applied. Administered Medications: 19:19 Drug: NS 0.9% IV 1000 ml IV at 1 bolus Per protocol; 1000 mL bolus Route: IV; Rate: 1 cp4 bolus; Site: right antecubital; 20:55 Follow up: Response: No adverse reaction cp4 22:23 Follow up: IV Status: Completed infusion; IV Intake: 1000ml vc1 19:19 Drug: TORadol - Ketorolac IVP 15 mg IVP once Route: IVP; Site: right antecubital; cp4 22:00 Follow up: Response: No adverse reaction; Marked relief of symptoms; Pain is decreased vc1 20:54 Drug: fentaNYL (PF) IVP 25 mcg IVP once Route: IVP; Site: right antecubital; cp4 22:23 Follow up: Response: No adverse reaction; Marked relief of symptoms vc1 20:55 Drug: Methocarbamol IVPB 1 grams IVPB once over 1 hrs; (mix in NS 100 mL) Route: IVPB; cp4 Infused Over: 1 hrs; Site: right antecubital; 22:00 Follow up: IV Status: Completed infusion; IV Intake: 100ml vc1 Medication: 19:19 VIS not applicable for this client. cp4 Intake: 22:00 IV: 100ml; Total: 100ml. vc1 22:23 IV: 1000ml; Total: 1100ml. vc1 Outcome: 22:06 Discharge ordered by MD. cp 22:21 Discharged to home ambulatory, with significant other, vc1 22:21 Condition: improved 22:21 Discharge instructions given to patient, significant other, Instructed on discharge instructions, follow up and referral plans. no driving heavy equipment, medication usage, Demonstrated understanding of instructions, follow-up care, medications, Prescriptions given X 2, 22:23 Patient left the ED. vc1 Signatures: [facility]patcher [facility] Be Keith PA PA cp Slawson, Ashby, RN RN as6 Jo Ann Briones RN RN vc1 Staci Webb mg5 Joselin Argueta cp4
[2023-09-28 22:48] VITALS: BP 156/85; TEMP 98.1; O2SAT 97
== END 2023-09-28 22:23 | disposition home or self-care (01) ==
LOC: ER 16:53
DX: M54.9 Dorsalgia, unspecified (principal)
CPT/HCPCS: 85025; 81001; 36415; 81025; 83690; 80053; 76377; 74176; 71045; J3010; J2800; J7030; 96361; 96365; 96375; 99284

== ENCOUNTER 2023-10-28 20:17 | Emergency (ER) | payer BC ==
--- OUTSIDE RECORDS SUMMARY | 2023-10-28 20:20 | XMS REPORT | Clinical Summary ---
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 30 tablet 01/23/2023 Active amoxicillin-clavulana te (Augmentin) 875 mg-125 mg per tabletIndications:Virginie lulitis and abscess of breast Take 1 tablet (875 mg) by mouth twice daily. 20 tablet 01/23/2023 Active Encounters Date Type Department Care Team Description 01/23/2023 1:37 PM CDT - 01/23/2023 5:22 PM CDT [facility] [address] [place] [address], 1st [place] [address] Buck Holt MD Cellulitis and abscess of breast (Primary Dx); Hypertension Discharge Disposition: Home after 10/28/2022 Surgical History Surgery Date Site/Laterality Comments SECTION, CLASSIC 05/31/1999 - 05/30/2000 x 2 LAPAROSCOPIC CHOLECYSTECOMY Medical History Medical History Date Comments Type 2 diabetes mellitus wit h diabetic retinopathy without macular edema Essential (primary) hypertension [place] palsy of left side of face COVID-19 [...]
[2023-10-28 21:58] LABS: SARS-CoV-2 Antigen CONTROL BLUE LINE VIS/BG OK; SARS-CoV-2 Antigen Rapid Res Negative (Negative)
[2023-10-28] MEDS ORDERED: HYDROCODONE/CHLORPHEN 5 ML/OSYR ONE (22:36)
[2023-10-28] MEDS ORDERED: dexAMETHasone 10 MG/ML VIAL ONE (22:37)
[2023-10-28] MEDS ORDERED: KETOROLAC 30 MG/ML INJ ONE (22:37)
[2023-10-28] MEDS ORDERED: AMOX/K CLAV 875 MG TAB ONE (22:37)
--- NOTE | 2023-10-28 22:40 | RAD REPORT ---
EXAM DESCRIPTION: RAD - Chest Pa And Lat (2 Views) - 10/28/2023 10:32 pm CLINICAL HISTORY: Congestion;Cough Chest pain. COMPARISON: Chest Single View dated 09/28/2023; Chest Pa And Lat (2 Views) dated 07/16/2023 FINDINGS: Moderate areas of airspace opacity are seen in the right lower lobe, left lower lobe media l left upper lobe likely representing multifocal pneumonia. The heart is normal in size. No displaced fractures. IMPRESSION: A multifocal moderate pneumonia pattern is suspected.
[2023-10-28] MEDS ORDERED: AZITHROMYCIN 250 MG TAB ONE (22:50)
--- NOTE | 2023-10-28 23:07 | ER ---
Nurse's Notes [facility] Name: Maria Fernanda Olivares Age: 47 yrs Sex: Female : 1975 Arrival Date: 10/28/2023 Time: 20:17 Bed DX5 Private MD: Diagnosis: Pneumonia, unspecified organism;Acute sinusitis, unspecified Presentation: 10/27 21:13 Chief complaint: Patient states: Fever, cough, congestion, headache onset 1 week ago. cm10 Pt states that she is coughing up clear phlegm. Pt also reports right sided throat pain. Coronavirus screen: Client denies travel out of the [place] in the last 14 days. At this time, the client does not indicate any symptoms associated with coronavirus-19. Ebola Screen: Patient denies travel to an Ebola-affected area in the 21 days before illness onset. No symptoms or risks identified at this time. Initial Sepsis Screen: Does the patient meet any 2 criteria? HR > 90 bpm. Does the patient have a suspected source of infection? No. Patient's initial sepsis screen is negative. Risk Assessment: Do you want to hurt yourself or someone else? Patient reports no desire to harm self or others. Onset of symptoms was October 28, 2023. 21:13 Method Of Arrival: Ambulatory 10 21:13 Acuity: ISREAL 3 cm10 Triage Assessment: 21:16 General: Appears in no apparent distress. uncomfortable, Behavior is calm, cooperative. cm10 Neuro: No deficits noted. Level of Consciousness is awake, alert, obeys commands, Oriented to person, place, time, situation, Appropriate for age. Respiratory: No deficits noted. Airway is patent Respiratory effort is even, unlabored, Respiratory pattern is regular, symmetrical. Historical: - Allergies: 21:16 No Known Allergies; cm10 - PMHx: 21:16 Asthma; diabetes mellitus; Gastroesophageal reflux disease; Hypercholesterolemia; cm10 Hypertensive disorder; - PSHx: 21:16 section; Cholecystectomy; hysterectomy; cm10 - Immunization history:: Adult Immunizations up to date. - Infectious Disease History:: Denies. - Social history:: Smoking status: Patient denies any tobacco usage or history of. Screenin:19 [facility] ED Fall Risk Assessment (Adult) History of falling in the last 3 months, vc1 including since admission No falls in past 3 months (0 pts) Confusion or Disorientation No (0 pts) Intoxicated or Sedated No (0 pts) Impaired Gait No (0 pts) Mobility Assist Device Used No (0 pt) Altered Elimination No (0 pt) Score/Fall Risk Level 0 - 2 = Low Risk Oriented to surroundings, Maintained a safe environment, Educated pt \T\ family on fall prevention, incl call for assistance when getting out of bed. Abuse screen: Denies threats or abuse. Nutritional screening: No deficits noted. Tuberculosis screening: No symptoms or risk factors identified. Vital Signs: 21:13 BP 166 / 76; Pulse 95; Resp 18; Temp 99.4; Pulse Ox 94% on R/A; Weight 97.52 kg; Height cm10 5 ft. 2 in. ; Pain 9/10; 21:13 Body Mass Index 39.32 (97.52 kg, 157.48 cm) cm10 21:13 Pain Scale: Adult cm10 ED Course: 20:21 Patient arrived in ED. gm2 21:16 Triage completed. cm10 21:16 Arm band placed on Patient placed in waiting room. cm10 21:19 Ernestina Franz PA-C is PHCP. sb4 21:19 Biju Laws MD is Attending Physician. sb4 21:21 Strep Sent. cm10 21:21 Flu Sent. cm10 21:21 SARS RAPID Sent. cm10 22:33 Chest Pa And Lat (2 Views) XRAY In Process Unspecified. EDMS 23:19 No provider procedures requiring assistance completed. IV discontinued, intact, vc1 bleeding controlled, No redness/swelling at site. Pressure dressing applied. Administered Medications: 22:42 CANCELLED (Physician Discretion): amoxicillin-frrixmrufqg202 mg PO once sb4 22:48 Drug: Tussionex Pennkinetic ER PO Suspension 5 ml PO once Route: PO; kb3 22:48 Drug: Ketorolac IM 30 mg IM once Route: IM; Site: right ventrogluteal; kb3 22:48 Drug: Dexamethasone IM 10 mg IM once Route: IM; Site: left ventrogluteal; kb3 22:48 Drug: Amoxicillin-Clavulanate PO 875 mg PO once Route: PO; kb3 22:55 Drug: AZITHromycin PO 500 mg PO once Route: PO; kb3 Medication: 23:19 VIS not applicable for this client. vc1 Outcome: 23:07 Discharge ordered by . corey 23:20 Discharged to home ambulatory, vc1 23:20 Condition: good 23:20 Condition: good 23:20 Discharge instructions given to patient, Instructed on discharge instructions, follow up and referral plans. the need for admit, medication usage, Demonstrated understanding of medications, Prescriptions given X 4, 23:42 Patient left the ED. vc1 Signatures: Dispatcher [employer] EDMS Jo Ann Briones RN RN vc1 Ayah Fink RN RN haroon3 Ernestina Franz, PA-C PA-C sb4 Kait Carl RN RN cm10 Amanda Quintanilla 2
--- NOTE | 2023-10-28 23:07 | EDPHYS ---
Physician Documentation [facility] Name: Maria Fernanda Olivares Age: 47 yrs Sex: Female : 1975 Arrival Date: 10/28/2023 Time: 20:17 Bed DX5 Private MD: ED Physician Biju Laws HPI: 10/27 21:45 This 47 yrs old Female presents to ER via Ambulatory with complaints of Fever, sb4 Cough, Nasal Congestion, Ear Pain, Weakness. 21:45 fever, cough, ear pain, sinus congestion, fatigue x 1 week. been taking OTC medications sb4 without significant relief in symptoms. with similar symptoms, less severe. Historical: - Allergies: 21:16 No Known Allergies; cm10 - PMHx: 21:16 Asthma; diabetes mellitus; Gastroesophageal reflux disease; Hypercholesterolemia; cm10 Hypertensive disorder; - PSHx: 21:16 section; Cholecystectomy; hysterectomy; cm10 - Immunization history:: Adult Immunizations up to date. - Infectious Disease History:: Denies. - Social history:: Smoking status: Patient denies any tobacco usage or history of. ROS: 21:45 Cardiovascular: Negative for chest pain, palpitations, and edema, sb4 21:45 Constitutional: Positive for fatigue, fever, 21:45 ENT: Positive for ear pain, sinus congestion, sinus pain, sore throat, 21:45 Respiratory: Positive for cough, with clear sputum, 21:45 Neuro: Positive for dizziness, headache, 21:45 All other systems are negative, Exam: 21:45 Eyes: Extra-ocular motions intact. Periorbital areas with no swelling, redness, or sb4 edema. Cardiovascular: Regular rate and rhythm with a normal S1 and S2. Respiratory: Lungs have equal breath sounds bilaterally, clear to auscultation and percussion. No rales, rhonchi or wheezes noted. No increased work of breathing, no retractions or nasal flaring. Abdomen/GI: Soft, non-tender, no distension. 21:45 Constitutional: The patient appears alert, awake, obviously ill, uncomfortable, 21:45 Eyes: Extraocular movements: intact throughout, 21:45 ENT: Ear canal(s): swelling, bilaterally, Nose: Turbinates: are swollen bilaterally, Posterior pharynx: Tonsils: bilaterally enlarged, with erythema, Vital Signs: 21:13 BP 166 / 76; Pulse 95; Resp 18; Temp 99.4; Pulse Ox 94% on R/A; Weight 97.52 kg; Height cm10 5 ft. 2 in. ; Pain 9/10; 21:13 Body Mass Index 39.32 (97.52 kg, 157.48 cm) cm10 21:13 Pain Scale: Adult cm10 MDM: 21:19 Patient medically screened. sb4 23:35 Data reviewed: vital signs, nurses notes, lab test result(s), radiologic studies, and sb4 as a result, I will discharge patient. Counseling: I had a detailed discussion with the patient and/or guardian regarding the historical points, exam findings, and any diagnostic results supporting the discharge/admit diagnosis, lab results, radiology results, to return to the emergency department if symptoms worsen or persist or if there are any questions or concerns that arise at home. 10/27 21:17 Order name: SARS RAPID; Complete Time: 22:02 cm10 10/27 21:17 Order name: Flu; Complete Time: 21:58 cm10 10/27 21:17 Order name: Strep; Complete Time: 22:02 cm10 10/27 22:00 Order name: Throat Culture EDMS 10/27 21:40 Order name: Chest Pa And Lat (2 Views) XRAY; Complete Time: 22:42 sb4 Administered Medications: 22:42 CANCELLED (Physician Discretion): amoxicillin-eysrwmcrbdi622 mg PO once sb4 22:48 Drug: Tussionex Pennkinetic ER PO Suspension 5 ml PO once Route: PO; kb3 22:48 Drug: Ketorolac IM 30 mg IM once Route: IM; Site: right ventrogluteal; kb3 22:48 Drug: Dexamethasone IM 10 mg IM once Route: IM; Site: left ventrogluteal; kb3 22:48 Drug: Amoxicillin-Clavulanate PO 875 mg PO once Route: PO; kb3 22:55 Drug: AZITHromycin PO 500 mg PO once Route: PO; kb3 Disposition: 10/28 03:04 Co-signature as Attending Physician, Biju Laws MD I agree with the assessment sp4 and plan of care. I reviewed the patient's care provided by the Advanced Practice Provider and agree with the diagnosis and treatment plan. Disposition Summary: 10/28/23 23:07 Discharge Ordered Notes: Location: Home sb4 Problem: new sb4 Symptoms: have improved sb4 Condition: Stable sb4 Diagnosis - Pneumonia, unspecified organism sb4 - Acute sinusitis, unspecified sb4 Followup: sb4 - With: Emergency Department - When: As needed - Reason: Trouble breathing, Worsening of condition Discharge Instructions: - Discharge Summary Sheet sb4 - Community-Acquired Pneumonia, Adult sb4 - Sinusitis, Adult, [id number] sb4 Forms: - Antibiotic Education sb4 - Patient Portal Instructions sb4 - Leadership Thank You Letter sb4 Prescriptions: - azithromycin 250 mg Oral tablet - take 1 tablet ORAL route daily for 4 days; 4 tablet; Refills: 0, Product sb4 Selection Permitted - Augmentin 875-125 mg Oral Tablet - take 1 tablet ORAL route every 12 hours for 10 days; 20 tablet; Refills: 0, sb4 Product Selection Permitted - Medrol (Kyler) 4 mg Oral Tablets, Dose Pack - take 1 tablet ORAL route as directed - follow package instructions; 1 packet; sb4 Refills: 0, Product Selection Permitted - Guaifenesin AC 10-100 mg/5 mL Oral Liquid - take 10 milliliters ORAL route every 4 hours As needed; 240 milliliter; sb4 Refills: 0, Product Selection Permitted Signatures: Dispatcher [employer] EDMS Ayah Fink, RN RN kb3 Ernestina Franz PARuthC PA-C sb4 Biju Laws MD MD sp4 Kait Carl, RN RN cm10 Corrections: (The following items were deleted from the chart) 10/27 21:41 21:41 Chest Pa And Lat (2 Views)+RAD.RAD.BRZ ordered. EDMS EDMS 22:42 21:41 Amoxicillin-Clavulanate PO 875 mg PO once ordered. sb4 sb4
[2023-10-29 00:36] VITALS: BP 166/76; TEMP 99.4; O2SAT 94
== END 2023-10-28 23:42 | disposition home or self-care (01) ==
LOC: ER 20:17
DX: J18.9 Pneumonia, unspecified organism (principal); J01.90 Acute sinusitis, unspecified; Z11.52 Encounter for screening for COVID-19
CPT/HCPCS: 87070; 36415; 87081; 87804 ×2; 71046; 96372; 99284; 87811; J1100

== ENCOUNTER 2023-12-29 13:23 | Emergency (ER) | payer BC, MEDICARE ==
--- OUTSIDE RECORDS SUMMARY | 2023-12-29 13:26 | XMS REPORT | Clinical Summary ---
Author Name Unknown Organization [facility] Address [address] [place] [id number] Care Team Providers Care Furniture Packer Name Role Phone Unavailable Primary Care Provider [...] PM CDT [facility] [address] [place] [address], [address] [place] [address] Buck Holt MD Cellulitis and abscess of breast (Primary Dx); Hypertension Discharge Disposition: Home after 12/29/2022 Surgical History Surgery Date Site/Laterality Comments SECTION, CLASSIC 05/31/1999 - 05/30/2000 x 2 LAPAROSCOPIC CHOLECYSTECOMY Medical History Medical History Date Comments Type 2 diabetes mellitus wit h diabetic retinopathy without macular edema Essential (primary) hypertension [place] palsy of left side of face COVID-19 [...]
[2023-12-29 14:23] LABS: Absolute Basophils 0.1 K/uL (0-0.5); Absolute Eosinophils 0.1 K/uL (0-0.5); Absolute Monocytes 0.4 K/uL (0.1-1.3); Absolute Neutrophil 3.5 K/uL (1.8-8.0); Basophils % 0.8 % (0-1.3); Eosinophils % 1.9 % (0-4.4); Hematocrit 35.9 % (36.0-45.0); Hemoglobin 11.7 g/dL (12.0-15.0); Lymphocytes % 32.7 % (15.3-44.8); MCH 28.8 pg (27.0-35.0); MCHC 32.6 g/dL (32.0-36.0); MCV 88.3 fL (80-100); MPV 8.3 fL (7.6-11.3); Monocytes % 6.9 % (3.3-12.3); Neutrophils % 57.7 % (41.7-73.7); Platelets 256 thou/uL (152-406); RBC Red Blood Cell Count 4.06 M/uL (3.86-4.86); Red Cell Distribution Width 14.3 % (12.1-15.2)
[2023-12-29 14:36] LABS: ALT/SGPT 17 U/L (13-56); Albumin 3.1 g/dL (3.4-5.0); Albumin/Globulin Ratio 0.7 (1.1-1.8); Alkaline Phosphatase 131 U/L (45-117); Anion Gap 6.8 mEq/L (5.0-15.0); BUN Blood Urea Nitrogen 30 mg/dL (7-18); Bicarbonate 30 mEq/L (21-32); Bilirubin Total 0.3 mg/dL (0.2-1.0); Globulin 4.7 g/dL (2.3-3.5); Glomerular Filtration Rate 52 ml/min (=/>90); Glucose Level 259 mg/dL (74-106); Lipase 35 U/L (13-75); Potassium 3.8 mEq/L (3.5-5.1); Protein, Total 7.8 g/dL (6.4-8.2); Sodium Level 136 mEq/L (136-145)
[2023-12-29 14:41] LABS: AST/SGOT < 10 U/L (15-37)
[2023-12-29 14:46] LABS: Specific Gravity < 1.005 (1.005-1.030); Sqamous Epithelial <5 /HPF (None Seen); Urine Bacteria <20 /HPF (<20); Urine Bilirubin NEGATIVE (Negative); Urine Blood 1+ (Negative); Urine Clarity Clear (Clear); Urine Color Colorless (Yellow); Urine Crystals Unidentified Few /HPF (None Seen); Urine Culture Reflex Order NOT NEEDED; Urine Glucose 2+ (Negative); Urine Ketones NEGATIVE (Negative); Urine Microscopic Reflex YN ORDER UMIC; Urine Mucus Slight /HPF (None Seen); Urine Nitrite NEGATIVE (Negative); Urine Protein 1+ (Negative); Urine RBC <5 /HPF (None Seen); Urine Urobilinogen Normal (Normal); Urine WBC <5 /HPF (<5)
--- NOTE | 2023-12-29 15:25 | RAD REPORT ---
EXAM DESCRIPTION: CT - CTFBWCON CLINICAL HISTORY: FACIAL PAIN Left-sided facial pain and swelling COMPARISON: <Comparisons> TECHNIQUE: Axial 2 mm thick images of the face were obtained with sagittal and coronal reconstructio n images. All CT scans are performed using dose optimization technique as appropriate and may include automated exposure control or mA/KV adjustment according to patient size. FINDINGS: No acute facial bone fracture is seen.The mandible is intact. The globes and orbital contents are grossly unremarkable.The paranasal sinuses and mastoids are clear . The left parotid gland appears enlarged and demonstrates internal areas of increased density. Normal thyroid gland. IMPRESSION: Enlarged and heterogenous left parotid gland suggests parotitis. Salivary glands are oth erwise unremarkable. .
[2023-12-29] MEDS ORDERED: AMOX/K CLAV 875 MG TAB ONE (16:11)
[2023-12-29] MEDS ORDERED: ONDANSETRON 4 MG/2 ML VIAL ONE (16:11)
[2023-12-29] MEDS ORDERED: NA CHLORIDE 0.9% 1,000 ML ONE (16:11)
[2023-12-29] MEDS ORDERED: KETOROLAC 30 MG/ML INJ ONE (16:11)
--- NOTE | 2023-12-29 16:33 | EDPHYS ---
Physician Documentation [facility] Name: Maria Fernanda Olivares Age: 48 yrs Sex: Female : 1975 Arrival Date: 12/29/2023 Time: 13:23 Bed 6 Private MD: ED Physician Be Velásquez HPI: 12/28 13:48 This 48 yrs old Female presents to ER via Ambulatory with complaints of Facial kb Swelling, Flank Pain. 13:48 Patient is a 48-year-old female who presents for swelling and pain to left cheek, just kb in front of ear that started 3 weeks ago and is gotten worse. Also reports right upper quadrant pain that started 7 months ago. Denies fever, nausea, vomiting, diarrhea. States she has not had the symptoms evaluated since onset. The pain to her cheek got worse today which is prompted her visit to the emergency department. Historical: - Allergies: 13:42 No Known Allergies; ko1 - Home Meds: 13:42 Unable to obtain [Active]; ko1 - PMHx: 13:42 Asthma; diabetes mellitus; Gastroesophageal reflux disease; Hypercholesterolemia; ko1 Hypertensive disorder; bells palsy (hysterectomy); - PSHx: 13:42 section; Cholecystectomy; hysterectomy; ko1 - Immunization history:: Adult Immunizations up to date. - Infectious Disease History:: Denies. - Social history:: Smoking status: Patient denies any tobacco usage or history of. ROS: 13:47 Constitutional: As per HPI kb Exam: 13:47 Constitutional: This is a well developed, well nourished patient who is awake, alert, kb and in no acute distress. Head/Face: Moderate swelling, tenderness to preauricular area on left side of face. ENT: Moist Mucous membranes Cardiovascular: Regular rate Respiratory: Respirations even and unlabored. No increased work of breathing. Talking in full sentences Skin: Warm, dry with normal turgor. Normal color. MS/ Extremity: Pulses equal, no cyanosis. Neurovascular intact. Full, normal range of motion. Neuro: Awake and alert, GCS 15, oriented to person, place, time, and situation. Moves all extremities. Normal gait. 13:47 ENT: Ear canal(s): cerumen impaction, that is mild, occluding the left ear canal, 13:47 Abdomen/GI: Inspection: abdomen appears normal, Bowel sounds: normal, Palpation: soft, in all quadrants, moderate abdominal tenderness, in the right upper quadrant, Vital Signs: 13:39 BP 188 / 96; Pulse 74; Resp 16; Temp 97; Pulse Ox 97% ; ko1 16:30 BP 157 / 83; Pulse 76; Resp 16; Temp 97.5; Pulse Ox 99% on R/A; ph 18:04 BP 149 / 76; Pulse 81; Resp 18; Pulse Ox 99% on R/A; ld1 MDM: 13:33 Patient medically screened. kb 13:48 Data reviewed: vital signs, nurses notes. kb 15:34 Differential diagnosis: parotitis, salivary stone, abscess, abnormal lfts. kb 15:35 Counseling: I had a detailed discussion with the patient and/or guardian regarding the kb historical points, exam findings, and any diagnostic results supporting the discharge/admit diagnosis, lab results, radiology results, the need for outpatient follow up, a family practitioner, to return to the emergency department if symptoms worsen or persist or if there are any questions or concerns that arise at home. 15:36 Test considered but Not performed: Ultrasound us abd considered but pt has history of kb cholecystectomy. CT: ct abd considered for RUQ pain but labs reassuring, pain has been ongoing for 7-8 months, pt afebrile, no n/v/d. 12/28 13:46 Order name: CBC with Diff; Complete Time: 14:39 kb 12/28 13:46 Order name: CMP; Complete Time: 14:56 kb 12/28 13:46 Order name: Lipase; Complete Time: 14:56 kb 12/28 13:46 Order name: Urinalysis w/ reflexes; Complete Time: 14:56 kb 12/28 13:53 Order name: CT Facial Bones W/ Con \T\ Mpr; Complete Time: 15:27 kb 12/28 13:46 Order name: IV Saline Lock; Complete Time: 14:12 kb 12/28 13:46 Order name: Labs collected and sent; Complete Time: 14:12 kb Administered Medications: 16:30 Drug: NS 0.9% IV 1000 ml IV at 1 bolus Per protocol; 1000 mL bolus Route: IV; Rate: 1 ph bolus; Site: left antecubital; 18:00 Follow up: Response: No adverse reaction; IV Status: Completed infusion; IV Intake: ph 1000ml 16:30 Drug: TORadol - Ketorolac IVP 15 mg IVP once Route: IVP; Site: left antecubital; ph 18:42 Follow up: Response: No adverse reaction ph 16:30 Drug: Ondansetron IVP 4 mg IVP once; over 2 minutes Route: IVP; Site: left antecubital; ph 17:00 Follow up: Response: No adverse reaction ph 16:30 Drug: Amoxicillin-Clavulanate PO 875 mg PO once Route: PO; ph 17:00 Follow up: Response: No adverse reaction ph Disposition: 21:27 Co-signature as Attending Physician, Be Velsáquez MD I agree with the assessment and ruddy plan of care. Disposition Summary: 12/29/23 16:32 Discharge Ordered Notes: Location: Home kb Condition: Stable kb Diagnosis - Left Parotitis kb Followup: kb - With: Emergency Department - When: As needed - Reason: Worsening of condition Followup: kb - With: Private Physician - When: 2 - 3 days - Reason: Recheck today's complaints, Continuance of care, Re-evaluation by your physician Discharge Instructions: - Discharge Summary Sheet kb - Parotitis, [id number] kb Forms: - Medication Reconciliation Form kb - Antibiotic Education kb - Prescription Opioid Use kb - Patient Portal Instructions kb - Leadership Thank You Letter kb Prescriptions: - Augmentin 875-125 mg Oral Tablet - take 1 tablet ORAL route every 12 hours for 10 days; 20 tablet; Refills: 0, kb Product Selection Permitted Signatures: Dispatcher [employer] EDMS Reena Lopez, IGNACIO-Anabell PIERRE-Be Whitfield MD MD cha Hall, Patricia, RN RN Medina Cisneros RN RN ko1 Corrections: (The following items were deleted from the chart) 13:47 13:47 CBC+H.LAB.BRZ ordered. EDMS EDMS 13:47 13:47 COMPREHENSIVE METABOLIC PANEL+C.LAB.BRZ ordered. EDMS EDMS 13:47 13:47 LIPASE+C.LAB.BRZ ordered. EDMS EDMS 13:47 13:47 Urinalysis+U.LAB.BRZ ordered. EDMS EDMS 13:54 13:54 Facial Bones W/ Con \T\ MPR+CT.RAD.BRZ ordered. EDMS EDMS
--- NOTE | 2023-12-29 16:33 | ER ---
Nurse's Notes [facility] Name: Maria Fernanda Olivares Age: 48 yrs Sex: Female : 1975 Arrival Date: 12/29/2023 Time: 13:23 Bed 6 Private MD: Diagnosis: Left Parotitis Presentation: 12/28 13:39 Chief complaint: Patient states: left facial pain and swelling for 3 weeks and right ko1 upper quadrant of abdomen. Coronavirus screen: At this time, the client does not indicate any symptoms associated with coronavirus-19. Ebola Screen: No symptoms or risks identified at this time. Initial Sepsis Screen: Does the patient meet any 2 criteria? No. Patient's initial sepsis screen is negative. Does the patient have a suspected source of infection? No. Patient's initial sepsis screen is negative. Risk Assessment: Do you want to hurt yourself or someone else? Patient reports no desire to harm self or others. Onset of symptoms is unknown. 13:39 Method Of Arrival: Ambulatory ko1 13:39 Acuity: ISREAL 3 ko1 Triage Assessment: 13:42 General: Appears in no apparent distress. Behavior is cooperative, anxious. Pain: ko1 Complains of pain in left side of face and right upper abdomen. Historical: - Allergies: 13:42 No Known Allergies; ko1 - Home Meds: 13:42 Unable to obtain [Active]; ko1 - PMHx: 13:42 Asthma; diabetes mellitus; Gastroesophageal reflux disease; Hypercholesterolemia; ko1 Hypertensive disorder; bells palsy (hysterectomy); - PSHx: 13:42 section; Cholecystectomy; hysterectomy; ko1 - Immunization history:: Adult Immunizations up to date. - Infectious Disease History:: Denies. - Social history:: Smoking status: Patient denies any tobacco usage or history of. Screenin:31 [facility] ED Fall Risk Assessment (Adult) History of falling in the last 3 months, ph including since admission No falls in past 3 months (0 pts) Confusion or Disorientation No (0 pts) Intoxicated or Sedated No (0 pts) Impaired Gait No (0 pts) Mobility Assist Device Used No (0 pt) Altered Elimination No (0 pt) Score/Fall Risk Level 0 - 2 = Low Risk Oriented to surroundings, Maintained a safe environment, Hourly rounding (assess needs \T\ fall precautionary measures) done. Abuse screen: Denies threats or abuse. Denies injuries from another. Nutritional screening: No deficits noted. Tuberculosis screening: No symptoms or risk factors identified. Assessment: 16:31 General: Appears in no apparent distress. Behavior is calm, cooperative. Pain: ph Complains of pain in left jaw. Neuro: Level of Consciousness is awake, alert, obeys commands, Oriented to person, place, time, situation. Cardiovascular: Capillary refill < 3 seconds in bilateral fingers Patient's skin is warm and dry. Respiratory: Airway is patent Respiratory effort is even, unlabored, Respiratory pattern is regular, symmetrical. Derm: Skin is pink, warm \T\ dry. 18:04 Reassessment: Patient appears in no apparent distress at this time. No changes from ld1 previously documented assessment. Patient and/or family updated on plan of care and expected duration. Pain level reassessed. Patient is alert, oriented x 3, equal unlabored respirations, skin warm/dry/pink. Vital Signs: 13:39 BP 188 / 96; Pulse 74; Resp 16; Temp 97; Pulse Ox 97% ; ko1 16:30 BP 157 / 83; Pulse 76; Resp 16; Temp 97.5; Pulse Ox 99% on R/A; ph 18:04 BP 149 / 76; Pulse 81; Resp 18; Pulse Ox 99% on R/A; ld1 ED Course: 13:26 Patient arrived in ED. mr 13:33 John Reena, IGNACIO-[facility] kb 13:33 Be Velásquez MD is Attending Physician. kb 13:42 Triage completed. ko1 13:42 Arm band placed on right wrist. Patient placed in waiting room. ko1 14:12 CBC with Diff Sent. bc6 14:12 CMP Sent. bc6 14:12 Lipase Sent. bc6 14:12 Initial lab(s) drawn, by me, sent to lab. Inserted saline lock: 20 gauge in left bc6 antecubital area, using aseptic technique. Blood collected. 15:14 CT Facial Bones W/ Con \T\ Mpr In Process Unspecified. EDMS 16:29 Tameka Neslon, RN is Primary Nurse. ph 16:32 Patient has correct armband on for positive identification. Bed in low position. Call ph light in reach. Side rails up X 1. Pulse ox on. NIBP on. Door closed. Noise minimized. Warm blanket given. Pillow given. 16:33 No provider procedures requiring assistance completed. ph 18:04 IV discontinued, intact, bleeding controlled, No redness/swelling at site. ld1 Administered Medications: 16:30 Drug: NS 0.9% IV 1000 ml IV at 1 bolus Per protocol; 1000 mL bolus Route: IV; Rate: 1 ph bolus; Site: left antecubital; 18:00 Follow up: Response: No adverse reaction; IV Status: Completed infusion; IV Intake: ph 1000ml 16:30 Drug: TORadol - Ketorolac IVP 15 mg IVP once Route: IVP; Site: left antecubital; ph 18:42 Follow up: Response: No adverse reaction ph 16:30 Drug: Ondansetron IVP 4 mg IVP once; over 2 minutes Route: IVP; Site: left antecubital; ph 17:00 Follow up: Response: No adverse reaction ph 16:30 Drug: Amoxicillin-Clavulanate PO 875 mg PO once Route: PO; ph 17:00 Follow up: Response: No adverse reaction ph Medication: 16:32 VIS not applicable for this client. ph Intake: 18:00 IV: 1000ml; Total: 1000ml. ph Outcome: 16:32 Discharge ordered by . haroon 18:04 Discharged to home ambulatory, ld1 18:04 Condition: stable 18:04 Discharge instructions given to patient, Instructed on discharge instructions, follow up and referral plans. Demonstrated understanding of instructions, follow-up care, medications, Prescriptions given X 1, 18:04 Patient left the ED. ld1 Signatures: Dispatcher [employer] EDDE Reena Lopez, IGNACIO-C [employer] MAINTENANCE WORKER-Akila Hughes, Reg Reg Tameka Smith, RN RN ph Jami Cazares RN RN ld1 Medina Cisneros RN RN ko1 Lilliam Gamboa bc6 Corrections: (The following items were deleted from the chart) 13:45 13:39 Chief complaint: Patient states: left facial pain and swelling for 3 weeks koFelix ko1
[2023-12-30 00:51] VITALS: TEMP 97.5; O2SAT 99
[2023-12-30 00:52] VITALS: BP 149/76
== END 2023-12-29 18:04 | disposition home or self-care (01) ==
LOC: ER 13:23
DX: K11.20 Sialoadenitis, unspecified (principal)
CPT/HCPCS: 36415; 70487; 76377; 80053; 81001; 83690; 85025; 96361; 96374; 96375; 99284; J2405; J7030; Q9967

== ENCOUNTER 2025-01-13 13:50 | Emergency (ER) | payer OTHER ==
--- OUTSIDE RECORDS SUMMARY | 2025-01-13 13:54 | XMS REPORT | Clinical Summary ---
Author Name Unknown Organization [facility] Address [address] [place] [address] Care Team Providers Care Architectural Manager Name Role Phone Unavailable Primary Care Provider Unavailabl e Allergies No known active allergies Medications amLODIPine (Norvasc) 5 mg tabletIndication s:Hypertension Take 1 tablet (5 mg) by mouth daily. 30 tablet 01/23/2023 Active amoxicillin-clav ulanate (Augmentin) 875 mg-125 mg per tabletIndication s:Cellulitis and abscess of breast Take 1 tablet (875 mg) by mouth twice daily. 20 tablet 01/23/2023 Active Surgical History Surgery Date Site/Laterality Comments SECTION, CLASSIC 05/31/1999 - 05/30/2000 x 2 LAPAROSCOPIC CHOLECYSTECOMY Medical History Medical History Date Comments Type 2 diabetes mellitus wit h diabetic retinopathy without macular edema Essential (primary) hypertension [place] palsy of left side of face COVID-19 [...] drink = 0.6 oz pur e alcohol) Comments No Sex and Gender Information Value Date Recorded Sex Assigned at Not on file Legal Sex Female 1:32 PM CDT Gender Identity Not on file Sexual Orientation Not on file Obstetrics History Plan of Treatment Not on file
--- NOTE | 2025-01-13 15:16 | EDPHYS ---
Physician Documentation [facility] Name: Maria Fernanda Olivares Age: 49 yrs Sex: Female : 1975 Arrival Date: 01/13/2025 Time: 13:50 Bed 17 Private MD: ED Physician Tana Eli HPI: 01/13 14:29 This 49 yrs old Female presents to ER via Ambulatory with complaints of sp3 Foreign Body In Throat - plastic package. 14:29 49-year-old female with history of asthma, Baker's palsy, CKD, diabetes, GERD now sp3 presents to the ED with chief complaint foreign body sensation of the throat. Symptoms have been going on since yesterday where she was eating crackers and feels like a cracker wrapper got flipped into her water and then she drank the water. She has been eating vigorously since then trying to "dislodge it". She is able to tolerate p.o. without any difficulty whatsoever. She denies any other symptoms including chest pain, back pain, shortness of breath, fever, abdominal pain, vomiting, diarrhea or any other signs or symptoms on ROS at this time.. Historical: - Allergies: 14:13 No Known Allergies; ar8 - PMHx: 14:13 Asthma; Baker's Palsy; CKD; diabetes mellitus; Gastroesophageal reflux disease; ar8 Hypercholesterolemia; Hypertensive disorder; - PSHx: 14:13 section; Cholecystectomy; hysterectomy; ar8 - Immunization history:: Adult Immunizations up to date. - Infectious Disease History:: Denies. - Social history:: Smoking status: Patient denies any tobacco usage or history of. ROS: 14:30 Constitutional: Negative for fever, chills, and weight loss, Eyes: Negative for injury, sp3 pain, redness, and discharge, Cardiovascular: Negative for chest pain, palpitations, and edema, Respiratory: Negative for shortness of breath, cough, wheezing, and pleuritic chest pain, Abdomen/GI: Negative for abdominal pain, nausea, vomiting, diarrhea, and constipation, Back: Negative for injury and pain, MS/Extremity: Negative for injury and deformity, Skin: Negative for injury, rash, and discoloration, Neuro: Negative for headache, weakness, numbness, tingling, and seizure, Psych: Negative for depression, anxiety, suicide ideation, homicidal ideation, and hallucinations, Allergy/Immunology: Negative for hives, rash, and allergies, Endocrine: Negative for neck swelling, polydipsia, polyuria, polyphagia, and marked weight changes, Hematologic/Lymphatic: Negative for swollen nodes, abnormal bleeding, and unusual bruising, 14:30 All other systems are negative, Exam: 14:30 Constitutional: This is a well developed, well nourished patient who is awake, alert, sp3 and in no acute distress. Head/Face: Normocephalic, atraumatic. Eyes: Pupils equal round and reactive to light, extra-ocular motions intact. Lids and lashes normal. Conjunctiva and sclera are non-icteric and not injected. Cornea within normal limits. Periorbital areas with no swelling, redness, or edema. ENT: Nares patent. No nasal discharge, no septal abnormalities noted. External auditory canals are clear. Oropharynx with no redness, swelling, or masses, exudates, or evidence of obstruction, uvula midline. Mucous membranes moist. Neck: Trachea midline, no thyromegaly or masses palpated, and no cervical lymphadenopathy. Supple, full range of motion without nuchal rigidity, or vertebral point tenderness. No Meningismus. Chest/axilla: Normal chest wall appearance and motion. Nontender with no deformity. No lesions are appreciated. Cardiovascular: Regular rate and rhythm with a normal S1 and S2. No gallops, murmurs, or rubs. Normal PMI, no JVD. No pulse deficits. Respiratory: Lungs have equal breath sounds bilaterally, clear to auscultation and percussion. No rales, rhonchi or wheezes noted. No increased work of breathing, no retractions or nasal flaring. Abdomen/GI: Soft, non-tender, with normal bowel sounds. No distension or tympany. No guarding or rebound. No evidence of tenderness throughout. Vital Signs: 14:10 BP 136 / 81; Pulse 87; Resp 16; Temp 97; Pulse Ox 97% ; Weight 90.72 kg; Height 5 ft. 1 ar8 in. ; Pain 6/10; 14:10 Body Mass Index 37.79 (90.72 kg, 154.94 cm) ar8 14:10 Pain Scale: Adult ar8 MDM: 14:16 Medical Screening Exam initiated sp3 14:30 Data reviewed: vital signs, nurses notes, radiologic studies. ED course: 49-year-old sp3 female with PMH above now with foreign body sensation of throat. I am not highly suspicious of impacted foreign body or airway obstruction clinically. Will obtain soft tissue x-ray of the lateral neck and if negative safely discharged home. Follow-up with GI as needed.. 15:15 ED course: Subtle soft tissue neck demonstrates no significant abnormality. Will Safety sp3 discharge patient home at this time.. 01/13 14:22 Order name: Neck Soft Tissue XRAY; Complete Time: 15:21 sp3 Administered Medications: No medications were administered Disposition Summary: 01/13/25 15:16 Discharge Ordered Notes: Location: Home sp3 Condition: Stable sp3 Diagnosis - Foreign body sensation of the throat, normal airway sp3 Followup: sp3 - With: Private Physician - When: Upon discharge from the Emergency Department - Reason: Continuance of care Discharge Instructions: - Discharge Summary Sheet sp3 - Swallowed Foreign Body, Adult sp3 Forms: - Medication Reconciliation Form sp3 - Antibiotic Education sp3 - Prescription Opioid Use sp3 - Patient Portal Instructions sp3 - Leadership Thank You Letter sp3 Signatures: Dispatcher [employer] EDTana Palacios MD MD sp3 Mike Diez RN RN ar8
--- NOTE | 2025-01-13 15:16 | ER ---
Nurse's Notes [facility] [place], [place] Name: Maria Fernanda Olivares Age: 49 yrs Sex: Female : 1975 Arrival Date: 01/13/2025 Time: 13:50 Bed 17 Private MD: Diagnosis: Foreign body sensation of the throat, normal airway Presentation: 01/13 14:10 Chief complaint: Patient states: C/O FB in throat. Patient states that she thinks that ar8 she swallowed a piece of plastic wrapper from a cracker package. Coronavirus screen: At this time, the client does not indicate any symptoms associated with coronavirus-19. Ebola Screen: No symptoms or risks identified at this time. Initial Sepsis Screen: Does the patient meet any 2 criteria? No. Patient's initial sepsis screen is negative. Initial Sepsis Screen: Does the patient have a suspected source of infection? No. Patient's initial sepsis screen is negative. Risk Assessment: Do you want to hurt yourself or someone else?. Onset of symptoms was January 13, 2025. 14:10 Method Of Arrival: Ambulatory ar8 14:10 Acuity: ISREAL 3 ar8 Triage Assessment: 14:17 General: Appears in no apparent distress. Behavior is calm, cooperative, appropriate ar8 for age. Pain: Complains of pain in throat Pain currently is 6 out of 10 on a pain scale. Quality of pain is described as discomfort. Historical: - Allergies: 14:13 No Known Allergies; ar8 - PMHx: 14:13 Asthma; Baker's Palsy; CKD; diabetes mellitus; Gastroesophageal reflux disease; ar8 Hypercholesterolemia; Hypertensive disorder; - PSHx: 14:13 section; Cholecystectomy; hysterectomy; ar8 - Immunization history:: Adult Immunizations up to date. - Infectious Disease History:: Denies. - Social history:: Smoking status: Patient denies any tobacco usage or history of. Screenin:15 [facility] ED Fall Risk Assessment (Adult) History of falling in the last 3 months, jl7 including since admission No falls in past 3 months (0 pts) Confusion or Disorientation No (0 pts) Intoxicated or Sedated No (0 pts) Impaired Gait No (0 pts) Mobility Assist Device Used No (0 pt) Altered Elimination No (0 pt) Score/Fall Risk Level 0 - 2 = Low Risk Oriented to surroundings, Maintained a safe environment. Abuse screen: Denies threats or abuse. Denies injuries from another. Nutritional screening: No deficits noted. Tuberculosis screening: No symptoms or risk factors identified. Assessment: 14:15 General: Appears in no apparent distress. uncomfortable, Behavior is calm, cooperative, jl7 appropriate for age. Pain: Complains of pain in neck Pain currently is 6 out of 10 on a pain scale. Neuro: Grijalva Agitation-Sedation Scale (RASS): 0 - Alert and Calm Level of Consciousness is awake, alert, obeys commands, Oriented to person, place, time, situation. Cardiovascular: Patient's skin is warm and dry. Respiratory: Airway is patent Respiratory effort is even, unlabored, Respiratory pattern is regular, symmetrical. Derm: Skin is pink, warm \T\ dry. Vital Signs: 14:10 BP 136 / 81; Pulse 87; Resp 16; Temp 97; Pulse Ox 97% ; Weight 90.72 kg; Height 5 ft. 1 ar8 in. ; Pain 6/10; 14:10 Body Mass Index 37.79 (90.72 kg, 154.94 cm) ar8 14:10 Pain Scale: Adult ar8 ED Course: 13:53 Patient arrived in ED. im 14:05 Tana Eli MD is Attending Physician. sp3 14:10 Mike Diez, RN is Primary Nurse. ar8 14:13 Triage completed. ar8 14:15 Patient has correct armband on for positive identification. Call light in reach. jl7 Provided Education on: use of call baker. 14:17 Arm band placed on right wrist. ar8 14:39 Alfonzo Mcintosh, RN is Primary Nurse. jl7 15:02 Neck Soft Tissue XRAY In Process Unspecified. EDMS 15:34 No provider procedures requiring assistance completed. Patient did not have IV access jl7 during this emergency room visit. Administered Medications: No medications were administered Medication: 14:15 VIS not applicable for this client. jl7 Outcome: 15:16 Discharge ordered by . sp3 15:34 Discharged to home ambulatory, jl7 15:34 Condition: stable 15:34 Discharge instructions given to patient, Instructed on discharge instructions, follow up and referral plans. Demonstrated understanding of instructions, follow-up care, 15:34 Patient left the ED. jl7 Signatures: Dispatcher [employer] EDMS Alfonzo Mcintosh RN RN jl7 Tana Eli MD MD sp3 Amalia Tan Andrea, RN RN ar8 Corrections: (The following items were deleted from the chart) 14 14:10 Acuity: ISREAL 4 nikolai menchaca 14:41 14:17 EKG completed in triage. Results shown to MD. nikolai grace 14:41 14:17 EKG completed in triage. Results shown to MD. nikolai grace
--- NOTE | 2025-01-13 15:20 | RAD REPORT ---
EXAM:Neck Soft Tissue CLINICAL HISTORY: Neck pain FINDINGS: Prevertebral soft tissues unremarkable Radiopaque foreign body not clearly seen. Visualized airway unremarkable Mild spondylosis cervical spine
[2025-01-13 21:57] VITALS: BP 136/81; TEMP 97; O2SAT 97
== END 2025-01-13 15:34 | disposition home or self-care (01) ==
LOC: ER 13:50
DX: R09.A2 Foreign body sensation, throat (principal)
CPT/HCPCS: 70360; 99282

== ENCOUNTER 2025-03-01 18:23 | Emergency (ER) | payer OTHER ==
--- OUTSIDE RECORDS SUMMARY | 2025-03-01 18:27 | XMS REPORT | Clinical Summary ---
Author Name Unknown Organization [facility] Address [address] [place] [address] Care Team Providers Care Associate Director Of Biostatistics Name Role Phone Unavailable Primary Care Provider [...] retinopathy without macular edema Essential (primary) hypertension [place] palsy of left side of face COVID-19 [...]
[2025-03-01 19:40] LABS: Absolute Lymphocytes (CBC) 2.6 K/uL (0.7-4.9); Hematocrit 34.0 % (36.0-45.0); Hemoglobin 10.8 g/dL (12.0-15.0); MCH 27.8 pg (27.0-35.0); MCHC 31.8 g/dL (32.0-36.0); MCV 87.5 fL (80-100); MPV 8.7 fL (7.6-11.3); Nucleated RBC Absolute Count 0.0 (0-0); Nucleated Red Blood Cells % 0.0 % (0-0); RBC Red Blood Cell Count 3.88 M/uL (3.86-4.86); White Blood Count 7.30 thou/uL (4.3-10.9)
[2025-03-01] MEDS ORDERED: CLINDAMYCIN 900MG/D5W 900 MG/50 ML IVPB IV ONE (19:52)
[2025-03-01 20:01] LABS: Sqamous Epithelial <5 /HPF (None Seen); Urine Crystals Unidentified Few /HPF (None Seen); Urine Culture Reflex Order REFLEXED; Urine Microscopic Reflex YN ORDER UMIC; Urine WBC Clump Occasional /HPF (None Seen); Urine Yeast (Budding) Trace /HPF (None Seen)
[2025-03-01 20:03] LABS: ALT/SGPT 22 U/L (13-56); Albumin 3.3 g/dL (3.4-5.0); Albumin/Globulin Ratio 0.8 (1.1-1.8); Alkaline Phosphatase 99 U/L (45-117); Anion Gap 10.2 mEq/L (5.0-15.0); BUN Blood Urea Nitrogen 39 mg/dL (7-18); Globulin 4.3 g/dL (2.3-3.5); Glucose Level 370 mg/dL (74-106); Potassium 4.2 mEq/L (3.5-5.1)
[2025-03-01 20:10] LABS: AST/SGOT < 10 U/L (15-37)
[2025-03-01] MEDS ORDERED: HYDROCODONE/APAP 5/325 MG TAB ONE (21:07)
[2025-03-01] MEDS ORDERED: NA CHLORIDE 0.9% 1,000 ML ONE (21:08)
[2025-03-01] MEDS ORDERED: INSULIN REGULAR (HUMAN) 100 UNIT/ML ONE (21:08)
--- NOTE | 2025-03-01 21:11 | RAD REPORT ---
EXAMINATION: CT MAXILLOFACIAL WITH CONTRAST CLINICAL INDICATION: Swelling;Pain TECHNIQUE: Axial images were obtained through the facial bones and orbits with intravenous contrast. Sagittal and coronal reconstructions were created from the data. One or more of the following dose reduction techniques were used: Automated exposure control, adjustment of the mA and/or kV according to patient size, and/or iterative reconstruction. Unless otherwise specified, incidental findings do not require dedicated imaging follow-up. COMPARISON: 02/25/2024 FINDINGS: SOFT TISSUE: Mild to moderate skin thickening and subcutaneous reticulated fat noted along the buccal cortex of the right anterior mandible.. No focal fluid collection or solid mass evident. This may be related to large periapical abscesses involving the right mandibular premolar. Mildly enlarged dipti ateral submandibular lymph nodes, largest on the right measuring 12 mm. BONES: No evidence of fracture, dislocation, or aggressive osseous lesions. No lesion of the visuali zed skull base or calvarium. Numerous dental caries. ORBITS: The globes are intact. No intraorbital hemorrhage or mass. SINUSES: The visualized paranasal sinuses and mastoid air cells are essentially clear. No localized fluid collection to indicate abscess. IMPRESSION: Inflammatory changes particularly right anterior mandible soft tissues which may be related to large periapical abscesses involving the right posterior molar and premolar. No drainable fluid collection. Enlarged bilateral submandibular lymph nodes, larger on the right, presumably reactive.
[2025-03-01] MEDS ORDERED: CEFTRIAXONE 1000 MG/VIAL ONE (21:28)
[2025-03-01] MEDS ORDERED: NA CHLORIDE 0.9% 50 ML ONE (21:28)
--- NOTE | 2025-03-01 22:01 | ER ---
Nurse's Notes [facility] Name: Maria Fernanda Olivares Age: 49 yrs Sex: Female : 1975 Arrival Date: 03/01/2025 Time: 18:23 Bed 13 Private MD: Diagnosis: Periapical abscess without sinus;Chronic kidney disease, unspecified;Diabetes mellitus due to underlying condition with hyperglycemia Presentation: 03/01 18:50 Chief complaint: Patient states: MASS ON RT CHIN AREA THAT BEGAN THIS MORNING. PT dd2 REPORTS INCREASED PAIN AND SWELLING THE DAY PROGRESSED. Coronavirus screen: At this time, the client does not indicate any symptoms associated with coronavirus-19. Ebola Screen: No symptoms or risks identified at this time. Risk Assessment: Do you want to hurt yourself or someone else? Patient reports no desire to harm self or others. Onset of symptoms was March 01, 2025. 18:50 Method Of Arrival: Ambulatory dd2 18:50 Acuity: ISREAL 3 dd2 18:52 Initial Sepsis Screen: Does the patient meet any 2 criteria? No. Patient's initial dd2 sepsis screen is negative. Does the patient have a suspected source of infection? No. Patient's initial sepsis screen is negative. Triage Assessment: 18:52 General: Appears in no apparent distress. uncomfortable, Behavior is calm, cooperative, dd2 appropriate for age. Pain: Complains of pain in right jaw Pain currently is 8 out of 10 on a pain scale. Derm: ENLARGED MASS TO RT JAW Reports pain that is 8 out of 10 on a pain scale. 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 - Infectious Disease History:: Denies. - Social history:: Smoking status: Patient denies any tobacco usage or history of. Screenin:00 [facility] ED Fall Risk Assessment (Adult) History of falling in the last 3 months, rg5 including since admission No falls in past 3 months (0 pts) Confusion or Disorientation No (0 pts) Intoxicated or Sedated No (0 pts) Impaired Gait No (0 pts) Mobility Assist Device Used No (0 pt) Altered Elimination No (0 pt) Score/Fall Risk Level 0 - 2 = Low Risk Oriented to surroundings, Maintained a safe environment. Abuse screen: Denies threats or abuse. Nutritional screening: No deficits noted. Tuberculosis screening: No symptoms or risk factors identified. Assessment: 20:00 General: Appears in no apparent distress. Behavior is calm, cooperative, appropriate rg5 for age. Pain: Complains of pain in right jaw Pain currently is 7 out of 10 on a pain scale. Quality of pain is described as aching. Neuro: Level of Consciousness is awake, alert, obeys commands, Oriented to person, place, time. Cardiovascular: Denies chest pain. Respiratory: Airway is patent Trachea midline Respiratory effort is even, unlabored, Respiratory pattern is regular, symmetrical. GI: Abdomen is round non-distended. : No signs and/or symptoms were reported regarding the genitourinary system. EENT: No signs and/or symptoms were reported regarding the EENT system. EENT:. Derm: Skin is intact, Skin is dry, Skin is normal. Musculoskeletal: Circulation, motion, and sensation intact. Range of motion: intact in all extremities. 21:15 Reassessment: Patient and/or family updated on plan of care and expected duration. Pain rg5 level reassessed. Patient is alert, oriented x 3, equal unlabored respirations, skin warm/dry/pink. Patient states symptoms have improved. 22:19 Reassessment: Patient and/or family updated on plan of care and expected duration. Pain rg5 level reassessed. Patient is alert, oriented x 3, equal unlabored respirations, skin warm/dry/pink. Patient states feeling better. Vital Signs: 18:52 BP 127 / 79; Pulse 82; Resp 16; Temp 98.4; Pulse Ox 95% on R/A; Weight 99.79 kg; Height dd2 5 ft. 1 in. ; Pain 8/10; 20:00 BP 136 / 69; Pulse 73; Resp 18; Pulse Ox 97% on R/A; rg5 21:30 BP 144 / 74; Pulse 72; Resp 18; Pulse Ox 99% ; rg5 22:15 BP 131 / 65; Pulse 75; Resp 18; Pulse Ox 100% ; Pain 0/10; rg5 18:52 Body Mass Index 41.57 (99.79 kg, 154.94 cm) dd2 18:52 Pain Scale: Adult dd2 22:15 Pain Scale: Adult rg5 ED Course: 18:29 Patient arrived in ED. al6 18:30 Be Keith PA-C is PHCP. cp 18:30 Ed Song MD is Attending Physician. cp 18:52 Triage completed. dd2 18:52 Arm band placed on right wrist. dd2 19:20 Abraham Da Silva DO is Attending Physician. cp 19:21 Radiology exam delayed due to lab results not completed at this time. (BUN/Creatinine) nj IV insertion attempt and/or patient not having appropriate IV at this time. 19:33 CBC with Diff Sent. bc6 19:33 CMP Sent. bc6 19:34 Initial lab(s) drawn, by me, sent to lab. Inserted saline lock: 20 gauge in left bc6 antecubital area, using aseptic technique. Blood collected. Flushed with 10 mL NS. 19:36 Dev Villalta, RN is Primary Nurse. rg5 20:00 Patient has correct armband on for positive identification. Door closed. Noise rg5 minimized. Warm blanket given. 20:00 No provider procedures requiring assistance completed. rg5 20:33 Maxillofacial Wo Con In Process Unspecified. EDMS 21:56 Natanael Meehan DDS is Referral Physician. cp 21:56 Referral Physician role handed off by Natanael Meehan DDS cp 21:57 Ab Rothman DO is Referral Physician. cp 21:57 Natanael Meehan DDS is Referral Physician. cp 22:19 Provided Education on: post er care. rg5 22:19 IV discontinued, bleeding controlled, No redness/swelling at site. Pressure dressing rg5 applied. Administered Medications: 19:55 Drug: Clindamycin IVPB 900 mg IVPB once over 30 mins; (mix in 50 mL) Route: IVPB; rg5 Infused Over: 30 mins; Site: left antecubital; 20:25 Follow up: IV Status: Completed infusion; IV Intake: 50ml rg5 21:13 Drug: HYDROcodone-acetaminophen PO 5 mg-325 mg 1 tabs PO once Route: PO; rg5 22:00 Follow up: Response: No adverse reaction; Pain is decreased rg5 21:13 Drug: NS 0.9% IV 1000 ml IV at 1000 ml once; to be given as a bolus over 60 minutes rg5 Route: IV; Rate: 1000 ml; Site: left antecubital; 22:00 Follow up: IV Status: Completed infusion; IV Intake: 1000ml rg5 21:14 Drug: Insulin Regular Human Sub-Q 10 units Sub-Q once {Co-Signature: jj7 (geoff Olivares RN).} Route: Sub-Q; Site: abdomen; 22:00 Follow up: Response: No adverse reaction rg5 21:30 Drug: Rocephin IV 1 grams IV at calculated rate once; Given slow IV push per pharmacy rg5 instructions Route: IV; Rate: calculated rate; Site: left antecubital; 22:00 Follow up: IV Status: Completed infusion; IV Intake: 50ml rg5 Medication: 20:00 VIS not applicable for this client. rg5 Intake: 20:25 IV: 50ml; Total: 50ml. rg5 22:00 IV: 50ml; Total: 100ml. rg5 22:00 IV: 1000ml; Total: 1100ml. rg5 Outcome: 22:00 Discharge ordered by MD. cp 22:18 Discharged to home ambulatory, rg5 22:18 Condition: stable 22:18 Discharge instructions given to patient, Instructed on discharge instructions, Demonstrated understanding of instructions, Prescriptions given X 3, 22:20 Patient left the ED. rg5 Addendum: 03/05/2025 09:18 Addendum: Culture Results: Positive urine culture. No further action required. Other: j l7 Per KATHI Lopez. Signatures: Dispatcher [employer] EDMS Be Keith, PAManjinder PA-C Flakito Murillo Jahala RN RN jl7 Lilliam Gamboa Rommel, RN RN rg5 HUGH MUNSON RN RN dd2 Pam Pacheco alBrien Castro RN jj7
--- NOTE | 2025-03-01 22:01 | EDPHYS ---
Physician Documentation [facility] Name: Maria Fernanda Olivares Age: 49 yrs Sex: Female : 1975 Arrival Date: 03/01/2025 Time: 18:23 Bed 13 Private MD: ED Physician Abraham Da Silva HPI: 03/01 20:00 This 49 yrs old Female presents to ER via Ambulatory with complaints of lump cp on jaw. 20:00 The patient presents with pain, swelling. The problem is located in the right lower cp jaw. Onset: The symptoms/episode began/occurred this morning, and became worse today. Duration: The symptoms are continuous, and are steadily getting worse. Associated signs and symptoms: Pertinent positives: right lower jaw pain, Pertinent negatives: dysphagia, fever. Severity of symptoms: in the emergency department the symptoms are unchanged, despite home interventions. PHYSICIAN CHIEF OF PATHOLOGY: 18:52 LMP N/A - Hysterectomy, Not dd2 Historical: - Allergies: 18:52 No Known Allergies; dd2 - PMHx: 18:52 Asthma; Baker's Palsy; CKD; diabetes mellitus; Gastroesophageal reflux disease; dd2 Hypercholesterolemia; Hypertensive disorder; - PSHx: 18:52 section; Cholecystectomy; hysterectomy; dd2 - Immunization history:: Adult Immunizations up to date. - Infectious Disease History:: Denies. - Social history:: Smoking status: Patient denies any tobacco usage or history of. ROS: 20:05 Constitutional: Negative for body aches, chills, fever, cp 20:05 Cardiovascular: Negative for chest pain, 20:05 Respiratory: Negative for cough, 20:05 Abdomen/GI: Negative for vomiting, diarrhea, constipation, 20:05 MS/extremity: Positive for pain, swelling, tenderness, of the right lower jaw, Negative for injury or acute deformity, 20:05 Skin: Negative for rash, 20:05 Neuro: Negative for altered mental status, headache, cp 20:05 All other systems are negative, Exam: 20:10 Constitutional: The patient appears in no acute distress, alert, awake, non-toxic, well cp developed, well nourished, overweight 20:10 Head/face: Noted is swelling, that is mild, of the right lower jaw, tenderness, that cp is moderate, of the right lower jaw, 20:10 Eyes: Periorbital structures: appear normal, Pupils: equal, round, and reactive to light and accomodation, Extraocular movements: intact throughout, Conjunctiva: normal, no exudate, no injection, Sclera: no appreciated abnormality, Lids and lashes: appear normal, bilaterally, 20:10 ENT: External ear(s): are unremarkable, Ear canal(s): are normal, clear, TM's: dullness, bilaterally, Nose: is normal, Mouth: Lips: moist, Oral mucosa: moist, Posterior pharynx: Airway: no evidence of obstruction, patent, swelling, is not appreciated, erythema, is not appreciated, exudate, is not appreciated, Dental exam: abscess, is not appreciated, dental caries, that is severe, diffusely, gum swelling, that is mild, specifically in the outer gumline left lower jaw, pain, that is moderate, specifically in the lower right first molar (#30) and lower right second molar (#31), loose, Voice: is normal, 20:10 Neck: ROM/movement: Meningeal signs: are not present, nuchal rigidity, is not appreciated, 20:10 Chest/axilla: Inspection: normal, 20:10 Cardiovascular: Rate: normal, Rhythm: regular, 20:10 Respiratory: the patient does not display signs of respiratory distress, Respirations: normal, no use of accessory muscles, no retractions, labored breathing, is not present, Breath sounds: are clear throughout, no decreased breath sounds, no stridor, no wheezing, 20:10 Abdomen/GI: Exam negative for discomfort, distension, guarding, 20:10 Back: pain, is absent, 20:10 Skin: no rash present. Vital Signs: 18:52 BP 127 / 79; Pulse 82; Resp 16; Temp 98.4; Pulse Ox 95% on R/A; Weight 99.79 kg; Height dd2 5 ft. 1 in. ; Pain 8/10; 20:00 BP 136 / 69; Pulse 73; Resp 18; Pulse Ox 97% on R/A; rg5 21:30 BP 144 / 74; Pulse 72; Resp 18; Pulse Ox 99% ; rg5 22:15 BP 131 / 65; Pulse 75; Resp 18; Pulse Ox 100% ; Pain 0/10; rg5 18:52 Body Mass Index 41.57 (99.79 kg, 154.94 cm) dd2 18:52 Pain Scale: Adult dd2 22:15 Pain Scale: Adult rg5 MDM: 18:47 Medical Screening Exam initiated cp 22:00 Data reviewed: vital signs, nurses notes, lab test result(s), radiologic studies, CT cp scan, and as a result, I will discharge patient, administer antibiotics. 22:00 Differential diagnosis: dental caries, dental abscess, pericoronitis. I considered the cp following discharge prescriptions or medication management in the emergency department Medications were administered in the Emergency Department. See MAR. Counseling: I had a detailed discussion with the patient and/or guardian regarding the historical points, exam findings, and any diagnostic results supporting the discharge/admit diagnosis, lab results, radiology results, the need for outpatient follow up, for definitive care, a dentist, to return to the emergency department if symptoms worsen or persist or if there are any questions or concerns that arise at home. Response to treatment: the patient's symptoms have mildly improved after treatment, and as a result, I will discharge patient. 03/01 19:19 Order name: UA Rfx Dionicio Cult if indicated; Complete Time: 20:49 cp 03/01 20:50 Interpretation: Normal except: [facility] Extremely Turbid; UGLUC 4+ (Over); UBLD Trace; cp UPROT 1+; UESTR 500; UWBC >50; UWBC Clump Occasional; BYST Trace. 03/01 19:19 Order name: Test, Urine; Complete Time: 20:49 cp 03/01 19:19 Order name: CBC with Diff; Complete Time: 20:49 cp 03/01 20:50 Interpretation: Normal except: HGB 10.8; HCT 34.0; MCHC 31.8. cp 03/01 19:19 Order name: CMP; Complete Time: 20:49 cp 03/01 20:50 Interpretation: Normal except: NA 133; GLUC 370; BUN 39; CRE 2.25; GFR 26; AST < 10; cp ALB 3.3; GLOB 4.3; A/G 0.8. 03/01 20:13 Order name: Urine Culture EDMS 03/01 20:33 Order name: Maxillofacial Wo Con; Complete Time: 21:17 EDMS 03/01 21:18 Interpretation: Report Reviewed. cp 03/01 19:19 Order name: IV Saline Lock; Complete Time: 19:33 cp 03/01 19:19 Order name: Labs collected and sent; Complete Time: 19:33 cp 03/01 21:18 Order name: PO challenge; Complete Time: 21:30 cp Administered Medications: 19:55 Drug: Clindamycin IVPB 900 mg IVPB once over 30 mins; (mix in 50 mL) Route: IVPB; rg5 Infused Over: 30 mins; Site: left antecubital; 20:25 Follow up: IV Status: Completed infusion; IV Intake: 50ml rg5 21:13 Drug: HYDROcodone-acetaminophen PO 5 mg-325 mg 1 tabs PO once Route: PO; rg5 22:00 Follow up: Response: No adverse reaction; Pain is decreased rg5 21:13 Drug: NS 0.9% IV 1000 ml IV at 1000 ml once; to be given as a bolus over 60 minutes rg5 Route: IV; Rate: 1000 ml; Site: left antecubital; 22:00 Follow up: IV Status: Completed infusion; IV Intake: 1000ml rg5 21:14 Drug: Insulin Regular Human Sub-Q 10 units Sub-Q once {Co-Signature: [email or web address] Susan Daniel Tesfaye RN).} Route: Sub-Q; Site: abdomen; 22:00 Follow up: Response: No adverse reaction rg5 21:30 Drug: Rocephin IV 1 grams IV at calculated rate once; Given slow IV push per pharmacy rg5 instructions Route: IV; Rate: calculated rate; Site: left antecubital; 22:00 Follow up: IV Status: Completed infusion; IV Intake: 50ml rg5 Disposition: 03/02 22:08 Chart complete. cp Disposition Summary: 03/01/25 22:00 Discharge Ordered Notes: Location: Home cp Problem: new cp Symptoms: have improved cp Condition: Stable cp Diagnosis - Periapical abscess without sinus cp - Chronic kidney disease, unspecified cp - Diabetes mellitus due to underlying condition with hyperglycemia cp Followup: cp - With: Natanael Meehan DDS - When: 2 - 3 days - Reason: Recheck today's complaints Followup: cp - With: Private Physician - When: 2 - 3 days - Reason: elevated blood glucose Followup: cp - With: Ab Rothamn DO - When: 2 - 3 days - Reason: chronic kidney disease Followup: cp - With: Fugler, Natanael, DDS - When: 2 - 3 days - Reason: periapical abscess Discharge Instructions: - Discharge Summary Sheet cp - Dental Abscess cp - Dental Pain cp - Hyperglycemia cp - Daily Diabetes Mellitus Record cp - Blood Glucose Monitoring, Adult cp - Diabetes Mellitus and Nutrition, Adult cp Forms: - Medication Reconciliation Form cp - Antibiotic Education cp - Prescription Opioid Use cp - Patient Portal Instructions cp - Leadership Thank You Letter cp Prescriptions: - Augmentin 500-125 mg Oral Tablet - take 1 tablet ORAL route every 8 hours for 10 days; 30 tablet; Refills: 0, cp Product Selection Permitted - Zofran 4 mg Oral Tablet - take 1 tablet ORAL route every 12 hours As needed; 20 tablet; Refills: 0, cp Product Selection Permitted - Metronidazole 500 mg Oral Tablet - take 1 tablet ORAL route every 8 hours; 30 tablet; Refills: 0, Product cp Selection Permitted Addendum: 03/06/2025 09:02 Co-signature as Attending Physician, Abraham Da Silva DO I reviewed the patient's care t t7 provided by the Advanced Practice Provider and agree with the diagnosis and treatment plan. Signatures: Dis[facility] Keith, MEGAN PADev May cp, RN RN rg5 HUGH MUNSON RN RN dd2 bAraham Da Silva DO DO tt7 Brien Olivares RN [email or web address] Corrections: (The following items were deleted from the chart) 03/01 20:33 19:19 Maxillofacial W/Cont+CT.RAD.BRZ ordered. [facility] 03/02 22:02 21:48 MS/extremity: Positive for pain, swelling, tenderness, of the right lower jaw, cp Negative for injury or acute deformity, cp 22:02 21:48 Constitutional: Negative for body aches, chills, fever, cp cp 22:02 21:48 Cardiovascular: Negative for chest pain, cp cp 22:02 21:48 Respiratory: Negative for cough, cp cp 22:02 21:48 Abdomen/GI: Negative for vomiting, diarrhea, constipation, cp cp 22:02 21:48 Skin: Negative for rash, cp cp
[2025-03-01 22:33] VITALS: TEMP 98.4
[2025-03-01 22:37] VITALS: BP 131/65; O2SAT 100
== END 2025-03-01 22:20 | disposition home or self-care (01) ==
LOC: ER 18:23
DX: K04.7 Periapical abscess without sinus (principal); E08.22 Diabetes mellitus due to underlying condition with diabetic chronic kidney disease; I12.9 Hypertensive chronic kidney disease with stage 1 through stage 4 chronic kidney disease, or unspecified chronic kidney disease; N18.9 Chronic kidney disease, unspecified; E08.65 Diabetes mellitus due to underlying condition with hyperglycemia
CPT/HCPCS: 96365; 96367; 87088; 85025; 81001; 87086; 36415; 81025; 82947; 87077; 87186; 80053; 70486; 96372; 99284; J1815; J7030; J0696